=== PATIENT | female | born 1960 | race Two or more races ===

== ENCOUNTER 2017-01-31 13:35 | Outpatient (CLI) | payer BC | END 2017-01-31 23:59 | disposition home or self-care (01) | LOC: WOU 13:35 | PROVIDERS: ATTEND Podiatrist Foot & Ankle Surgery | DX: E11.622 Type 2 diabetes mellitus with other skin ulcer (principal); L97.321 Non-pressure chronic ulcer of left ankle limited to breakdown of skin; L03.116 Cellulitis of left lower limb; E11.610 Type 2 diabetes mellitus with diabetic neuropathic arthropathy; Z83.3 Family history of diabetes mellitus; Z82.49 Family history of ischemic heart disease and other diseases of the circulatory system; E11.42 Type 2 diabetes mellitus with diabetic polyneuropathy; I10 Essential (primary) hypertension; E78.5 Hyperlipidemia, unspecified; Z79.02 Long term (current) use of antithrombotics/antiplatelets; Z79.4 Long term (current) use of insulin; Z79.899 Other long term (current) drug therapy; Z86.73 Personal history of transient ischemic attack (TIA), and cerebral infarction without residual deficits | CPT/HCPCS: 11042; 87070; A6209; A6402 ==

== ENCOUNTER 2017-02-14 13:37 | Outpatient (CLI) | payer BC | END 2017-02-14 23:59 | disposition home or self-care (01) | LOC: WOU 13:37 | PROVIDERS: ATTEND Podiatrist Foot & Ankle Surgery | DX: E11.610 Type 2 diabetes mellitus with diabetic neuropathic arthropathy (principal); E11.42 Type 2 diabetes mellitus with diabetic polyneuropathy; R23.3 Spontaneous ecchymoses; E78.5 Hyperlipidemia, unspecified; I10 Essential (primary) hypertension; Z86.73 Personal history of transient ischemic attack (TIA), and cerebral infarction without residual deficits; L03.90 Cellulitis, unspecified | CPT/HCPCS: G0463 ==

== ENCOUNTER → 2017-02-15 | Outpatient (CLI) | payer BC | END | disposition home or self-care (01) | LOC: RAD 14:43 | PROVIDERS: ATTEND Podiatrist Foot & Ankle Surgery | DX: M77.31 Calcaneal spur, right foot (principal) | CPT/HCPCS: 73630-TC ==

== ENCOUNTER 2017-02-16 12:40 | Outpatient (CLI) | payer BC | END 2017-02-16 23:59 | disposition home or self-care (01) | LOC: WOU 12:40 | PROVIDERS: ATTEND Podiatrist Foot & Ankle Surgery | DX: E11.610 Type 2 diabetes mellitus with diabetic neuropathic arthropathy (principal); E11.42 Type 2 diabetes mellitus with diabetic polyneuropathy; B35.1 Tinea unguium; L03.031 Cellulitis of right toe; L03.115 Cellulitis of right lower limb; B35.3 Tinea pedis | CPT/HCPCS: G0463 ==

== ENCOUNTER 2017-03-07 13:35 | Outpatient (CLI) | payer BC | END 2017-03-07 23:59 | disposition home or self-care (01) | LOC: WOU 13:35 | PROVIDERS: ATTEND Podiatrist Foot & Ankle Surgery | DX: E11.610 Type 2 diabetes mellitus with diabetic neuropathic arthropathy (principal); E11.42 Type 2 diabetes mellitus with diabetic polyneuropathy | CPT/HCPCS: G0463 ==

== ENCOUNTER 2017-03-29 11:28 | Emergency (ER) | payer BC ==
[~2017-03-29] VITALS: Ht 170.2 cm; Wt 108.9 kg
[2017-03-29 11:45] VITALS: BP 122/60
[2017-03-29] MEDS ORDERED: CEFTRIAXONE 1 G VIAL IM ONE (13:00)
[2017-03-29] MEDS ORDERED: LIDOCAINE /MPF 1% VIAL 5 ML VIAL ONE (13:03)
[2017-03-29] MEDS ORDERED: CEFTRIAXONE 1 G VIAL ONE (13:03)
== END 2017-03-29 13:26 | disposition home or self-care (01) ==
LOC: ER 11:29
DX: L02.612 Cutaneous abscess of left foot (principal); I10 Essential (primary) hypertension; E78.00 Pure hypercholesterolemia, unspecified; E11.9 Type 2 diabetes mellitus without complications; E03.9 Hypothyroidism, unspecified; M10.9 Gout, unspecified
CPT/HCPCS: 10060; 96372; 99283; A4606; A6402; J0696; J3490; Z7610

== ENCOUNTER 2017-04-04 12:45 | Outpatient (CLI) | payer BC | END 2017-04-04 23:59 | disposition home or self-care (01) | LOC: WOU 12:45 | PROVIDERS: ATTEND Podiatrist Foot & Ankle Surgery | DX: E11.621 Type 2 diabetes mellitus with foot ulcer (principal); L97.421 Non-pressure chronic ulcer of left heel and midfoot limited to breakdown of skin; L03.116 Cellulitis of left lower limb; E11.610 Type 2 diabetes mellitus with diabetic neuropathic arthropathy; E11.42 Type 2 diabetes mellitus with diabetic polyneuropathy; Z86.73 Personal history of transient ischemic attack (TIA), and cerebral infarction without residual deficits; E78.5 Hyperlipidemia, unspecified; I10 Essential (primary) hypertension | CPT/HCPCS: 11042; A6402 ==

== ENCOUNTER 2017-04-11 12:50 | Outpatient (CLI) | payer BC | END 2017-04-11 23:59 | disposition home or self-care (01) | LOC: WOU 12:50 | PROVIDERS: ATTEND Podiatrist Foot & Ankle Surgery | DX: E11.621 Type 2 diabetes mellitus with foot ulcer (principal); L97.421 Non-pressure chronic ulcer of left heel and midfoot limited to breakdown of skin; E11.610 Type 2 diabetes mellitus with diabetic neuropathic arthropathy; E11.42 Type 2 diabetes mellitus with diabetic polyneuropathy; I10 Essential (primary) hypertension; Z86.73 Personal history of transient ischemic attack (TIA), and cerebral infarction without residual deficits | CPT/HCPCS: 11042; A6402 ==

== ENCOUNTER 2017-04-18 12:15 | Outpatient (CLI) | payer BC | END 2017-04-18 23:59 | disposition home or self-care (01) | LOC: WOU 12:15 | PROVIDERS: ATTEND Podiatrist Foot & Ankle Surgery | DX: E11.621 Type 2 diabetes mellitus with foot ulcer (principal); L97.421 Non-pressure chronic ulcer of left heel and midfoot limited to breakdown of skin; E11.610 Type 2 diabetes mellitus with diabetic neuropathic arthropathy; E11.40 Type 2 diabetes mellitus with diabetic neuropathy, unspecified; B35.1 Tinea unguium | CPT/HCPCS: 11042; A6402 ==

== ENCOUNTER 2017-04-25 12:55 | Outpatient (CLI) | payer BC | END 2017-04-25 23:59 | disposition home or self-care (01) | LOC: WOU 12:55 | PROVIDERS: ATTEND Podiatrist Foot & Ankle Surgery | DX: E11.621 Type 2 diabetes mellitus with foot ulcer (principal); L97.421 Non-pressure chronic ulcer of left heel and midfoot limited to breakdown of skin; E11.42 Type 2 diabetes mellitus with diabetic polyneuropathy; E11.610 Type 2 diabetes mellitus with diabetic neuropathic arthropathy | CPT/HCPCS: 11042; A6402 ==

== ENCOUNTER 2017-05-02 12:26 | Outpatient (CLI) | payer BC | END 2017-05-02 23:59 | disposition home or self-care (01) | LOC: WOU 12:26 | PROVIDERS: ATTEND Podiatrist Foot & Ankle Surgery | DX: E11.621 Type 2 diabetes mellitus with foot ulcer (principal); L97.421 Non-pressure chronic ulcer of left heel and midfoot limited to breakdown of skin; E11.610 Type 2 diabetes mellitus with diabetic neuropathic arthropathy; E11.42 Type 2 diabetes mellitus with diabetic polyneuropathy | CPT/HCPCS: 11042; A6402 ==

== ENCOUNTER 2017-05-09 12:44 | Outpatient (CLI) | payer BC | END 2017-05-09 23:59 | disposition home or self-care (01) | LOC: WOU 12:44 | PROVIDERS: ATTEND Podiatrist Foot & Ankle Surgery | DX: E11.621 Type 2 diabetes mellitus with foot ulcer (principal); L97.421 Non-pressure chronic ulcer of left heel and midfoot limited to breakdown of skin; E11.610 Type 2 diabetes mellitus with diabetic neuropathic arthropathy; E11.51 Type 2 diabetes mellitus with diabetic peripheral angiopathy without gangrene; M21.40 Flat foot [pes planus] (acquired), unspecified foot; E11.42 Type 2 diabetes mellitus with diabetic polyneuropathy; E78.5 Hyperlipidemia, unspecified; I10 Essential (primary) hypertension; Z86.73 Personal history of transient ischemic attack (TIA), and cerebral infarction without residual deficits | CPT/HCPCS: 11042; A6402 ==

== ENCOUNTER 2017-05-16 12:32 | Outpatient (CLI) | payer BC | END 2017-05-16 23:59 | disposition home or self-care (01) | LOC: WOU 12:32 | PROVIDERS: ATTEND Podiatrist Foot & Ankle Surgery | DX: E11.621 Type 2 diabetes mellitus with foot ulcer (principal); L97.421 Non-pressure chronic ulcer of left heel and midfoot limited to breakdown of skin; E11.610 Type 2 diabetes mellitus with diabetic neuropathic arthropathy; E11.42 Type 2 diabetes mellitus with diabetic polyneuropathy; I10 Essential (primary) hypertension; E78.5 Hyperlipidemia, unspecified; Z86.73 Personal history of transient ischemic attack (TIA), and cerebral infarction without residual deficits; B35.1 Tinea unguium | CPT/HCPCS: 11042; A6402 ×2 ==

== ENCOUNTER 2017-05-25 12:59 | Outpatient (CLI) | payer BC | END 2017-05-25 23:59 | disposition home or self-care (01) | LOC: WOU 12:59 | PROVIDERS: ATTEND Podiatrist Foot & Ankle Surgery | DX: E11.621 Type 2 diabetes mellitus with foot ulcer (principal); L97.423 Non-pressure chronic ulcer of left heel and midfoot with necrosis of muscle; E11.610 Type 2 diabetes mellitus with diabetic neuropathic arthropathy; E11.42 Type 2 diabetes mellitus with diabetic polyneuropathy; B35.1 Tinea unguium | CPT/HCPCS: 11043; A6197; A6402 ==

== ENCOUNTER 2017-06-01 13:26 | Outpatient (CLI) | payer BC | END 2017-06-01 23:59 | disposition home or self-care (01) | LOC: WOU 13:26 | PROVIDERS: ATTEND Podiatrist Foot & Ankle Surgery | DX: E11.621 Type 2 diabetes mellitus with foot ulcer (principal); L97.421 Non-pressure chronic ulcer of left heel and midfoot limited to breakdown of skin; E11.610 Type 2 diabetes mellitus with diabetic neuropathic arthropathy; E11.42 Type 2 diabetes mellitus with diabetic polyneuropathy | CPT/HCPCS: 11042; A6197; A6402 ==

== ENCOUNTER 2017-06-08 13:03 | Outpatient (CLI) | payer BC | END 2017-06-08 23:59 | disposition home or self-care (01) | LOC: WOU 13:03 | PROVIDERS: ATTEND Podiatrist Foot & Ankle Surgery | DX: E11.610 Type 2 diabetes mellitus with diabetic neuropathic arthropathy (principal); E11.42 Type 2 diabetes mellitus with diabetic polyneuropathy; L97.421 Non-pressure chronic ulcer of left heel and midfoot limited to breakdown of skin; S93.601A Unspecified sprain of right foot, initial encounter; W18.40XA Slipping, tripping and stumbling without falling, unspecified, initial encounter; Y92.89 Other specified places as the place of occurrence of the external cause; M19.031 Primary osteoarthritis, right wrist; R60.0 Localized edema | CPT/HCPCS: 29445; 73630; 99213; A6402; G0463 ==

== ENCOUNTER 2017-06-22 14:31 | Outpatient (CLI) | payer BC | END 2017-06-22 23:59 | disposition home or self-care (01) | LOC: WOU 14:31 | PROVIDERS: ATTEND Podiatrist Foot & Ankle Surgery | DX: E11.621 Type 2 diabetes mellitus with foot ulcer (principal); L97.421 Non-pressure chronic ulcer of left heel and midfoot limited to breakdown of skin; E11.610 Type 2 diabetes mellitus with diabetic neuropathic arthropathy; E11.42 Type 2 diabetes mellitus with diabetic polyneuropathy; B35.1 Tinea unguium | CPT/HCPCS: 29445; A6209 ==

== ENCOUNTER 2017-06-29 13:00 | Outpatient (CLI) | payer BC | END 2017-06-29 23:59 | disposition home or self-care (01) | LOC: WOU 13:00 | PROVIDERS: ATTEND Podiatrist Foot & Ankle Surgery | DX: E11.621 Type 2 diabetes mellitus with foot ulcer (principal); L97.421 Non-pressure chronic ulcer of left heel and midfoot limited to breakdown of skin; E11.610 Type 2 diabetes mellitus with diabetic neuropathic arthropathy; E11.42 Type 2 diabetes mellitus with diabetic polyneuropathy | CPT/HCPCS: 11042; A6209; A6402 ==

== ENCOUNTER 2017-07-06 13:15 | Outpatient (CLI) | payer BC | END 2017-07-06 23:59 | disposition home or self-care (01) | LOC: WOU 13:15 | PROVIDERS: ATTEND Podiatrist Foot & Ankle Surgery | DX: E11.621 Type 2 diabetes mellitus with foot ulcer (principal); L97.521 Non-pressure chronic ulcer of other part of left foot limited to breakdown of skin; E11.610 Type 2 diabetes mellitus with diabetic neuropathic arthropathy; E11.42 Type 2 diabetes mellitus with diabetic polyneuropathy; R60.0 Localized edema | CPT/HCPCS: A6402 ==

== ENCOUNTER 2017-07-18 10:55 | Outpatient (CLI) | payer BC | END 2017-07-18 23:59 | disposition home or self-care (01) | LOC: WOU 10:55 | PROVIDERS: ATTEND Podiatrist Foot & Ankle Surgery | DX: E11.610 Type 2 diabetes mellitus with diabetic neuropathic arthropathy (principal); E11.621 Type 2 diabetes mellitus with foot ulcer; L97.429 Non-pressure chronic ulcer of left heel and midfoot with unspecified severity; B35.1 Tinea unguium; L60.1 Onycholysis; R60.0 Localized edema | CPT/HCPCS: 11730; 29445; A6402 ==

== ENCOUNTER 2017-07-27 13:55 | Outpatient (CLI) | payer BC | END 2017-07-27 23:59 | disposition home or self-care (01) | LOC: WOU 13:55 | PROVIDERS: ATTEND Podiatrist Foot & Ankle Surgery | DX: E11.610 Type 2 diabetes mellitus with diabetic neuropathic arthropathy (principal); R60.0 Localized edema | CPT/HCPCS: G0463 ==

== ENCOUNTER 2017-08-10 12:50 | Outpatient (CLI) | payer BC | END 2017-08-10 23:59 | disposition home or self-care (01) | LOC: WOU 12:50 | PROVIDERS: ATTEND Podiatrist Foot & Ankle Surgery | DX: E11.610 Type 2 diabetes mellitus with diabetic neuropathic arthropathy (principal); R60.0 Localized edema ==

== ENCOUNTER 2017-08-13 14:06 | Outpatient (CLI) | payer BC | END 2017-08-13 23:59 | disposition home or self-care (01) | LOC: RAD 14:06 | PROVIDERS: ATTEND Podiatrist Foot & Ankle Surgery | DX: M77.31 Calcaneal spur, right foot (principal); I73.9 Peripheral vascular disease, unspecified; M77.32 Calcaneal spur, left foot | CPT/HCPCS: 73610-TC; 73630-TC ==

== ENCOUNTER 2017-08-17 13:05 | Outpatient (CLI) | payer BC | END 2017-08-17 23:59 | disposition home or self-care (01) | LOC: WOU 13:05 | PROVIDERS: ATTEND Podiatrist Foot & Ankle Surgery | DX: E11.610 Type 2 diabetes mellitus with diabetic neuropathic arthropathy (principal); E11.42 Type 2 diabetes mellitus with diabetic polyneuropathy; R60.0 Localized edema; M21.171 Varus deformity, not elsewhere classified, right ankle ==

== ENCOUNTER 2017-08-29 10:35 | Outpatient (CLI) | payer BC | END 2017-08-29 23:59 | disposition home or self-care (01) | LOC: WOU 10:35 | PROVIDERS: ATTEND Specialist | DX: E11.610 Type 2 diabetes mellitus with diabetic neuropathic arthropathy (principal); E11.42 Type 2 diabetes mellitus with diabetic polyneuropathy; E78.5 Hyperlipidemia, unspecified; I10 Essential (primary) hypertension; Z86.73 Personal history of transient ischemic attack (TIA), and cerebral infarction without residual deficits ==

== ENCOUNTER 2017-09-05 10:43 | Outpatient (CLI) | payer BC | END 2017-09-05 23:59 | disposition home or self-care (01) | LOC: WOU 10:43 | PROVIDERS: ATTEND Podiatrist Foot & Ankle Surgery | DX: S91.011D Laceration without foreign body, right ankle, subsequent encounter (principal); X58.XXXD Exposure to other specified factors, subsequent encounter; R60.0 Localized edema; M21.171 Varus deformity, not elsewhere classified, right ankle; E11.622 Type 2 diabetes mellitus with other skin ulcer; L97.311 Non-pressure chronic ulcer of right ankle limited to breakdown of skin; E11.42 Type 2 diabetes mellitus with diabetic polyneuropathy | CPT/HCPCS: A6402 ==

== ENCOUNTER 2017-09-21 11:00 | Outpatient (CLI) | payer BC | END 2017-09-21 23:59 | disposition home or self-care (01) | LOC: WOU 11:00 | PROVIDERS: ATTEND Podiatrist Foot & Ankle Surgery | DX: E11.622 Type 2 diabetes mellitus with other skin ulcer (principal); L97.312 Non-pressure chronic ulcer of right ankle with fat layer exposed; E11.42 Type 2 diabetes mellitus with diabetic polyneuropathy; L03.115 Cellulitis of right lower limb; E11.610 Type 2 diabetes mellitus with diabetic neuropathic arthropathy | CPT/HCPCS: 29445; A6209; A6402 ==

== ENCOUNTER 2017-09-28 08:21 | Outpatient (CLI) | payer BC | END 2017-09-29 23:59 | disposition home or self-care (01) | LOC: MRI 08:21 | PROVIDERS: ATTEND Podiatrist Foot & Ankle Surgery | DX: M89.8X7 Other specified disorders of bone, ankle and foot (principal); M14.671 Charcot's joint, right ankle and foot; M65.871 Other synovitis and tenosynovitis, right ankle and foot; M76.61 Achilles tendinitis, right leg; E11.9 Type 2 diabetes mellitus without complications | CPT/HCPCS: 73718-TC; 73721-TC ==

== ENCOUNTER 2017-10-05 12:50 | Outpatient (CLI) | payer BC | END 2017-10-05 23:59 | disposition home or self-care (01) | LOC: WOU 12:50 | PROVIDERS: ATTEND Podiatrist Foot & Ankle Surgery | DX: E11.622 Type 2 diabetes mellitus with other skin ulcer (principal); L97.312 Non-pressure chronic ulcer of right ankle with fat layer exposed; E11.610 Type 2 diabetes mellitus with diabetic neuropathic arthropathy; E11.42 Type 2 diabetes mellitus with diabetic polyneuropathy; M84.674A Pathological fracture in other disease, right foot, initial encounter for fracture | CPT/HCPCS: 11042; A6209; A6253; A6402 ==

== ENCOUNTER 2017-10-12 12:30 | Outpatient (CLI) | payer BC | END 2017-10-12 23:59 | disposition home or self-care (01) | LOC: WOU 12:30 | PROVIDERS: ATTEND Podiatrist Foot & Ankle Surgery | DX: E11.622 Type 2 diabetes mellitus with other skin ulcer (principal); L97.312 Non-pressure chronic ulcer of right ankle with fat layer exposed; E11.610 Type 2 diabetes mellitus with diabetic neuropathic arthropathy | CPT/HCPCS: 11042; A6209; A6402 ==

== ENCOUNTER 2017-10-24 11:03 | Outpatient (CLI) | payer BC | END 2017-10-24 23:59 | disposition home or self-care (01) | LOC: WOU 11:03 | PROVIDERS: ATTEND Podiatrist Foot & Ankle Surgery | DX: E11.622 Type 2 diabetes mellitus with other skin ulcer (principal); L97.312 Non-pressure chronic ulcer of right ankle with fat layer exposed; E11.610 Type 2 diabetes mellitus with diabetic neuropathic arthropathy; E11.42 Type 2 diabetes mellitus with diabetic polyneuropathy; R60.0 Localized edema | CPT/HCPCS: 11042; A6209; A6402 ==

== ENCOUNTER 2017-10-25 09:49 | Emergency (ER) | payer BC ==
[~2017-10-25] VITALS: Ht 167.6 cm; Wt 108.9 kg
--- NOTE | 2017-10-25 10:02 | NUR ---
PATIENT TO ED DT RIGHT FOOT PAIN, PT NOTED WITH RIGHT FOOT CAST PLACED BY MD JACK. PATIENT HAS HX OF CHARCOT FOOT. PT NOT IN DISTRESS. VSS
--- NOTE | 2017-10-25 10:03 | NUR ---
RAY AT BEDSIDE
--- NOTE | 2017-10-25 11:30 | NUR ---
CAST REMOVED PER MD ORDER
[2017-10-25 14:35] VITALS: BP 124/80
== END 2017-10-25 14:36 | disposition home or self-care (01) ==
LOC: ER 09:50
DX: Z47.89 Encounter for other orthopedic aftercare (principal); E03.9 Hypothyroidism, unspecified; E11.9 Type 2 diabetes mellitus without complications; I10 Essential (primary) hypertension; M10.9 Gout, unspecified; Z79.4 Long term (current) use of insulin
CPT/HCPCS: 99281; A4606; A6403; Z7610; Z7502

== ENCOUNTER → 2017-10-26 | Outpatient (CLI) | payer BC | END | disposition home or self-care (01) | LOC: WOU 08:14 | PROVIDERS: ATTEND Podiatrist Foot & Ankle Surgery | DX: E11.622 Type 2 diabetes mellitus with other skin ulcer (principal); L97.312 Non-pressure chronic ulcer of right ankle with fat layer exposed; E11.42 Type 2 diabetes mellitus with diabetic polyneuropathy; E11.610 Type 2 diabetes mellitus with diabetic neuropathic arthropathy | CPT/HCPCS: 11042; A6209; A6402 ==

== ENCOUNTER 2017-11-02 11:00 | Outpatient (CLI) | payer BC | END 2017-11-02 23:59 | disposition home or self-care (01) | LOC: WOU 11:00 | PROVIDERS: ATTEND Podiatrist Foot & Ankle Surgery | DX: E11.622 Type 2 diabetes mellitus with other skin ulcer (principal); E11.610 Type 2 diabetes mellitus with diabetic neuropathic arthropathy; E11.42 Type 2 diabetes mellitus with diabetic polyneuropathy; L97.312 Non-pressure chronic ulcer of right ankle with fat layer exposed; R60.0 Localized edema | CPT/HCPCS: 11042; A6209; A6402 ==

== ENCOUNTER 2017-11-09 13:25 | Outpatient (CLI) | payer BC | END 2017-11-09 23:59 | disposition home or self-care (01) | LOC: WOU 13:25 | PROVIDERS: ATTEND Podiatrist Foot & Ankle Surgery | DX: E11.610 Type 2 diabetes mellitus with diabetic neuropathic arthropathy (principal); E11.42 Type 2 diabetes mellitus with diabetic polyneuropathy; R60.0 Localized edema | CPT/HCPCS: A6209; G0463 ==

== ENCOUNTER 2017-12-05 09:08 | Outpatient (CLI) | payer BC | END 2017-12-05 23:59 | disposition home or self-care (01) | LOC: WOU 09:08 | PROVIDERS: ATTEND Podiatrist Foot & Ankle Surgery | DX: E11.622 Type 2 diabetes mellitus with other skin ulcer (principal); L97.312 Non-pressure chronic ulcer of right ankle with fat layer exposed; E11.42 Type 2 diabetes mellitus with diabetic polyneuropathy; E11.610 Type 2 diabetes mellitus with diabetic neuropathic arthropathy; M21.171 Varus deformity, not elsewhere classified, right ankle; M84.671 Pathological fracture in other disease, right ankle | CPT/HCPCS: 11042; A6209; A6402 ==

== ENCOUNTER 2017-12-14 13:39 | Outpatient (CLI) | payer BC | END 2017-12-14 23:59 | disposition home or self-care (01) | LOC: WOU 13:39 | PROVIDERS: ATTEND Podiatrist Foot & Ankle Surgery | DX: E11.622 Type 2 diabetes mellitus with other skin ulcer (principal); L97.312 Non-pressure chronic ulcer of right ankle with fat layer exposed; E11.610 Type 2 diabetes mellitus with diabetic neuropathic arthropathy; M21.171 Varus deformity, not elsewhere classified, right ankle; E11.40 Type 2 diabetes mellitus with diabetic neuropathy, unspecified | CPT/HCPCS: 11042; A6402 ==

== ENCOUNTER 2017-12-25 08:00 | Outpatient (CLI) | payer BC | END 2017-12-25 23:59 | disposition home or self-care (01) | LOC: WOU 08:00 | PROVIDERS: ATTEND Podiatrist Foot & Ankle Surgery | DX: E11.622 Type 2 diabetes mellitus with other skin ulcer (principal); L97.312 Non-pressure chronic ulcer of right ankle with fat layer exposed; E11.42 Type 2 diabetes mellitus with diabetic polyneuropathy; E11.610 Type 2 diabetes mellitus with diabetic neuropathic arthropathy; M25.374 Other instability, right foot; R60.0 Localized edema | CPT/HCPCS: 11042; A6402 ==

== ENCOUNTER 2018-01-01 08:00 | Outpatient (CLI) | payer BC | END 2018-01-01 23:59 | disposition home or self-care (01) | LOC: WOU 08:00 | PROVIDERS: ATTEND Podiatrist Foot & Ankle Surgery | DX: E11.622 Type 2 diabetes mellitus with other skin ulcer (principal); L97.312 Non-pressure chronic ulcer of right ankle with fat layer exposed; E11.610 Type 2 diabetes mellitus with diabetic neuropathic arthropathy; E11.40 Type 2 diabetes mellitus with diabetic neuropathy, unspecified; R60.9 Edema, unspecified; M21.10 Varus deformity, not elsewhere classified, unspecified site | CPT/HCPCS: 11042; A6402 ==

== ENCOUNTER 2018-01-15 08:00 | Outpatient (CLI) | payer BC | END 2018-01-15 23:59 | disposition home or self-care (01) | LOC: WOU 08:00 | PROVIDERS: ATTEND Podiatrist Foot & Ankle Surgery | DX: E11.622 Type 2 diabetes mellitus with other skin ulcer (principal); L97.312 Non-pressure chronic ulcer of right ankle with fat layer exposed; E11.42 Type 2 diabetes mellitus with diabetic polyneuropathy; E11.610 Type 2 diabetes mellitus with diabetic neuropathic arthropathy; Z79.4 Long term (current) use of insulin; Z79.02 Long term (current) use of antithrombotics/antiplatelets; R60.0 Localized edema | CPT/HCPCS: 11042; A6402 ==

== ENCOUNTER 2018-01-16 09:45 | Outpatient (CLI) | payer BC ==
[2018-01-16] MEDS ORDERED: FLUORESCEIN SODIUM OPHTH 1 EA STRIP ONE (14:22)
[2018-01-16] MEDS ORDERED: TETRACAINE HCL/PF 0.5% UD 2 ML BOTTLE ONE (14:22)
== END 2018-01-16 23:59 | disposition home or self-care (01) ==
LOC: WOU 09:45
PROVIDERS: ATTEND Podiatrist Foot & Ankle Surgery
DX: E11.610 Type 2 diabetes mellitus with diabetic neuropathic arthropathy (principal); M25.371 Other instability, right ankle; M25.571 Pain in right ankle and joints of right foot; Z79.4 Long term (current) use of insulin
CPT/HCPCS: A6402

== ENCOUNTER 2018-01-22 08:20 | Outpatient (CLI) | payer BC | END 2018-01-22 23:59 | disposition home or self-care (01) | LOC: WOU 08:20 | PROVIDERS: ATTEND Podiatrist Foot & Ankle Surgery | DX: E11.621 Type 2 diabetes mellitus with foot ulcer (principal); L97.312 Non-pressure chronic ulcer of right ankle with fat layer exposed; E11.42 Type 2 diabetes mellitus with diabetic polyneuropathy; E11.610 Type 2 diabetes mellitus with diabetic neuropathic arthropathy; Z79.4 Long term (current) use of insulin; R60.9 Edema, unspecified | CPT/HCPCS: 11042; A6402; 11045 ==

== ENCOUNTER 2018-01-29 08:23 | Outpatient (CLI) | payer BC | END 2018-01-29 23:59 | disposition home or self-care (01) | LOC: WOU 08:23 | PROVIDERS: ATTEND Podiatrist Foot & Ankle Surgery | DX: E11.621 Type 2 diabetes mellitus with foot ulcer (principal); L97.312 Non-pressure chronic ulcer of right ankle with fat layer exposed; E11.42 Type 2 diabetes mellitus with diabetic polyneuropathy; E11.610 Type 2 diabetes mellitus with diabetic neuropathic arthropathy; Z79.4 Long term (current) use of insulin; M21.179 Varus deformity, not elsewhere classified, unspecified ankle; R60.9 Edema, unspecified | CPT/HCPCS: 11042; A6402 ==

== ENCOUNTER 2018-02-05 08:07 | Outpatient (CLI) | payer BC | END 2018-02-05 23:59 | disposition home or self-care (01) | LOC: WOU 08:07 | PROVIDERS: ATTEND Podiatrist Foot & Ankle Surgery | DX: E11.622 Type 2 diabetes mellitus with other skin ulcer (principal); L97.312 Non-pressure chronic ulcer of right ankle with fat layer exposed; S90.32XA Contusion of left foot, initial encounter; X58.XXXA Exposure to other specified factors, initial encounter; Y92.89 Other specified places as the place of occurrence of the external cause; E11.610 Type 2 diabetes mellitus with diabetic neuropathic arthropathy; Z79.4 Long term (current) use of insulin; M21.171 Varus deformity, not elsewhere classified, right ankle; R60.9 Edema, unspecified | CPT/HCPCS: 11042; A6402 ==

== ENCOUNTER 2018-02-19 08:50 | Outpatient (CLI) | payer BC | END 2018-02-19 23:59 | disposition home or self-care (01) | LOC: WOU 08:50 | PROVIDERS: ATTEND Podiatrist Foot & Ankle Surgery | DX: E11.622 Type 2 diabetes mellitus with other skin ulcer (principal); L97.312 Non-pressure chronic ulcer of right ankle with fat layer exposed; E11.610 Type 2 diabetes mellitus with diabetic neuropathic arthropathy; E11.42 Type 2 diabetes mellitus with diabetic polyneuropathy; E11.65 Type 2 diabetes mellitus with hyperglycemia; Z79.4 Long term (current) use of insulin | CPT/HCPCS: 11042; A6402 ==

== ENCOUNTER 2018-03-11 14:44 | Outpatient (CLI) | payer BC | END 2018-03-11 23:59 | disposition home or self-care (01) | LOC: RAD 14:44 | PROVIDERS: ATTEND Podiatrist Foot & Ankle Surgery | DX: S82.891A Other fracture of right lower leg, initial encounter for closed fracture (principal); X58.XXXA Exposure to other specified factors, initial encounter; Y93.89 Activity, other specified; Y92.89 Other specified places as the place of occurrence of the external cause; Y99.8 Other external cause status | CPT/HCPCS: 73600-TC; 73630-TC ==

== ENCOUNTER 2018-03-12 08:07 | Outpatient (CLI) | payer BC | END 2018-03-12 23:59 | disposition home or self-care (01) | LOC: WOU 08:07 | PROVIDERS: ATTEND Podiatrist Foot & Ankle Surgery | DX: E11.622 Type 2 diabetes mellitus with other skin ulcer (principal); L97.312 Non-pressure chronic ulcer of right ankle with fat layer exposed; E11.610 Type 2 diabetes mellitus with diabetic neuropathic arthropathy; Z79.4 Long term (current) use of insulin; R60.0 Localized edema; E11.42 Type 2 diabetes mellitus with diabetic polyneuropathy | CPT/HCPCS: 11042; A6209; A6402 ==

== ENCOUNTER 2018-03-15 11:27 | Outpatient (CLI) | payer BC | END 2018-03-15 23:59 | disposition home or self-care (01) | LOC: WOU 11:27 | PROVIDERS: ATTEND Podiatrist Foot & Ankle Surgery | DX: E11.622 Type 2 diabetes mellitus with other skin ulcer (principal); L97.312 Non-pressure chronic ulcer of right ankle with fat layer exposed; E11.610 Type 2 diabetes mellitus with diabetic neuropathic arthropathy; E11.42 Type 2 diabetes mellitus with diabetic polyneuropathy; R60.0 Localized edema; M25.371 Other instability, right ankle; Z79.4 Long term (current) use of insulin; Z79.899 Other long term (current) drug therapy; Z79.02 Long term (current) use of antithrombotics/antiplatelets | CPT/HCPCS: G0463 ==

== ENCOUNTER 2018-04-02 07:50 | Outpatient (CLI) | payer BC | END 2018-04-02 23:59 | disposition home or self-care (01) | LOC: WOU 07:50 | PROVIDERS: ATTEND Podiatrist Foot & Ankle Surgery | DX: E11.622 Type 2 diabetes mellitus with other skin ulcer (principal); L97.312 Non-pressure chronic ulcer of right ankle with fat layer exposed; E11.42 Type 2 diabetes mellitus with diabetic polyneuropathy; R60.0 Localized edema; E11.610 Type 2 diabetes mellitus with diabetic neuropathic arthropathy; Z79.4 Long term (current) use of insulin; Z79.02 Long term (current) use of antithrombotics/antiplatelets | CPT/HCPCS: 11042; A6209; A6402; Z7610 ==

== ENCOUNTER 2018-04-03 08:33 | Outpatient (CLI) | payer BC | END 2018-04-03 23:59 | disposition home or self-care (01) | LOC: WOU 08:33 | PROVIDERS: ATTEND Specialist | DX: M25.571 Pain in right ankle and joints of right foot (principal); E11.610 Type 2 diabetes mellitus with diabetic neuropathic arthropathy; E11.628 Type 2 diabetes mellitus with other skin complications; E78.5 Hyperlipidemia, unspecified; E11.42 Type 2 diabetes mellitus with diabetic polyneuropathy; Z86.73 Personal history of transient ischemic attack (TIA), and cerebral infarction without residual deficits; I10 Essential (primary) hypertension; Z79.4 Long term (current) use of insulin; Z79.02 Long term (current) use of antithrombotics/antiplatelets; Z79.899 Other long term (current) drug therapy | CPT/HCPCS: G0463; Z7610 ==

== ENCOUNTER 2018-04-17 13:30 | Outpatient (CLI) | payer BC | END 2018-04-17 23:59 | disposition home or self-care (01) | LOC: WOU 13:30 | PROVIDERS: ATTEND Podiatrist Foot & Ankle Surgery | DX: E11.622 Type 2 diabetes mellitus with other skin ulcer (principal); L97.312 Non-pressure chronic ulcer of right ankle with fat layer exposed; E11.610 Type 2 diabetes mellitus with diabetic neuropathic arthropathy; E11.42 Type 2 diabetes mellitus with diabetic polyneuropathy; M21.171 Varus deformity, not elsewhere classified, right ankle; Z79.02 Long term (current) use of antithrombotics/antiplatelets; Z79.4 Long term (current) use of insulin | CPT/HCPCS: 11042; A6402; Z7610 ==

== ENCOUNTER 2018-05-14 07:55 | Outpatient (CLI) | payer BC | END 2018-05-14 23:59 | disposition home or self-care (01) | LOC: WOU 07:55 | PROVIDERS: ATTEND Podiatrist Foot & Ankle Surgery | DX: E11.622 Type 2 diabetes mellitus with other skin ulcer (principal); L97.318 Non-pressure chronic ulcer of right ankle with other specified severity; E11.610 Type 2 diabetes mellitus with diabetic neuropathic arthropathy; E11.42 Type 2 diabetes mellitus with diabetic polyneuropathy; E11.628 Type 2 diabetes mellitus with other skin complications; Z79.4 Long term (current) use of insulin; Z79.02 Long term (current) use of antithrombotics/antiplatelets | CPT/HCPCS: 11042; A6402; Z7610 ==

== ENCOUNTER 2018-06-11 08:00 | Outpatient (CLI) | payer BC | END 2018-06-11 23:59 | disposition home or self-care (01) | LOC: WOU 08:00 | PROVIDERS: ATTEND Podiatrist Foot & Ankle Surgery | DX: E11.610 Type 2 diabetes mellitus with diabetic neuropathic arthropathy (principal); E11.42 Type 2 diabetes mellitus with diabetic polyneuropathy; M21.171 Varus deformity, not elsewhere classified, right ankle; Z79.4 Long term (current) use of insulin; Z79.02 Long term (current) use of antithrombotics/antiplatelets; Z86.31 Personal history of diabetic foot ulcer | CPT/HCPCS: 29445; A6402; Z7610 ==

== ENCOUNTER 2018-06-13 10:06 | Outpatient (CLI) | payer BC | END 2018-06-13 23:59 | disposition home or self-care (01) | LOC: CT 10:06 | PROVIDERS: ATTEND Podiatrist Foot & Ankle Surgery | DX: M21.961 Unspecified acquired deformity of right lower leg (principal); R60.0 Localized edema; Z87.39 Personal history of other diseases of the musculoskeletal system and connective tissue; E03.9 Hypothyroidism, unspecified; I10 Essential (primary) hypertension; E11.9 Type 2 diabetes mellitus without complications | CPT/HCPCS: 73700-TC ==

== ENCOUNTER 2018-07-05 08:44 | Outpatient (CLI) | payer BC | END 2018-07-05 23:59 | disposition home or self-care (01) | LOC: WOU 08:44 | PROVIDERS: ATTEND Podiatrist Foot & Ankle Surgery | DX: Z47.89 Encounter for other orthopedic aftercare (principal); E11.610 Type 2 diabetes mellitus with diabetic neuropathic arthropathy; E11.42 Type 2 diabetes mellitus with diabetic polyneuropathy; Z86.31 Personal history of diabetic foot ulcer; M21.171 Varus deformity, not elsewhere classified, right ankle; T85.79XA Infection and inflammatory reaction due to other internal prosthetic devices, implants and grafts, initial encounter; Y79.3 Surgical instruments, materials and orthopedic devices (including sutures) associated with adverse incidents; Y92.89 Other specified places as the place of occurrence of the external cause | CPT/HCPCS: 99214; A6402; Z7610; G0463 ==

== ENCOUNTER 2018-07-26 10:27 | Outpatient (CLI) | payer BC | END 2018-07-26 23:59 | LOC: WOU 10:27 | PROVIDERS: ATTEND Podiatrist Foot & Ankle Surgery | DX: Z47.89 Encounter for other orthopedic aftercare (principal); E11.610 Type 2 diabetes mellitus with diabetic neuropathic arthropathy; R60.0 Localized edema; Z79.4 Long term (current) use of insulin | CPT/HCPCS: A6402; G0463; Z7610 ==

== ENCOUNTER 2018-10-09 13:55 | Outpatient (CLI) | payer BC | END 2018-10-09 23:59 | disposition home health service (06) | LOC: WOU 13:55 | PROVIDERS: ATTEND Podiatrist Foot & Ankle Surgery | DX: Z47.89 Encounter for other orthopedic aftercare (principal); E11.610 Type 2 diabetes mellitus with diabetic neuropathic arthropathy; E11.42 Type 2 diabetes mellitus with diabetic polyneuropathy; R60.0 Localized edema; L97.813 Non-pressure chronic ulcer of other part of right lower leg with necrosis of muscle; Z79.82 Long term (current) use of aspirin; Z79.4 Long term (current) use of insulin | CPT/HCPCS: 11043; A6402 ==

== ENCOUNTER 2018-10-29 11:00 | Outpatient (CLI) | payer BC | END 2018-10-29 23:59 | disposition home or self-care (01) | LOC: CT 11:00 | PROVIDERS: ATTEND Podiatrist Foot & Ankle Surgery | DX: M21.961 Unspecified acquired deformity of right lower leg (principal); R60.0 Localized edema; E03.9 Hypothyroidism, unspecified; I10 Essential (primary) hypertension; E11.9 Type 2 diabetes mellitus without complications; Z87.39 Personal history of other diseases of the musculoskeletal system and connective tissue | CPT/HCPCS: 73700-TC ==

== ENCOUNTER 2018-10-29 11:30 | Outpatient (CLI) | payer BC | END 2018-10-29 23:59 | disposition home health service (06) | LOC: WOU 11:30 | PROVIDERS: ATTEND Podiatrist Foot & Ankle Surgery | DX: Z47.89 Encounter for other orthopedic aftercare (principal); Z98.1 Arthrodesis status; L97.315 Non-pressure chronic ulcer of right ankle with muscle involvement without evidence of necrosis; E11.610 Type 2 diabetes mellitus with diabetic neuropathic arthropathy; E11.42 Type 2 diabetes mellitus with diabetic polyneuropathy; Z79.4 Long term (current) use of insulin | CPT/HCPCS: 11042 ==

== ENCOUNTER 2018-11-05 13:38 | Outpatient (CLI) | payer BC | END 2018-11-05 23:59 | disposition home health service (06) | LOC: WOU 13:38 | PROVIDERS: ATTEND Podiatrist Foot & Ankle Surgery | DX: Z47.89 Encounter for other orthopedic aftercare (principal); E11.622 Type 2 diabetes mellitus with other skin ulcer; L97.315 Non-pressure chronic ulcer of right ankle with muscle involvement without evidence of necrosis; E11.610 Type 2 diabetes mellitus with diabetic neuropathic arthropathy; E11.42 Type 2 diabetes mellitus with diabetic polyneuropathy; Z79.4 Long term (current) use of insulin; R60.0 Localized edema; Z98.1 Arthrodesis status | CPT/HCPCS: 11042; Z7610 ==

== ENCOUNTER 2018-11-13 13:05 | Outpatient (CLI) | payer BC | END 2018-11-13 23:59 | disposition home health service (06) | LOC: WOU 13:05 | PROVIDERS: ATTEND Podiatrist Foot & Ankle Surgery | DX: E11.622 Type 2 diabetes mellitus with other skin ulcer (principal); L97.315 Non-pressure chronic ulcer of right ankle with muscle involvement without evidence of necrosis; E11.610 Type 2 diabetes mellitus with diabetic neuropathic arthropathy; E11.42 Type 2 diabetes mellitus with diabetic polyneuropathy; M24.671 Ankylosis, right ankle; Z98.1 Arthrodesis status | CPT/HCPCS: 11042; A6402 ==

== ENCOUNTER 2018-11-27 10:51 | Outpatient (CLI) | payer BC | END 2018-11-27 23:59 | disposition home or self-care (01) | LOC: CT 10:51 | PROVIDERS: ATTEND Podiatrist Foot & Ankle Surgery | DX: M21.961 Unspecified acquired deformity of right lower leg (principal); L98.498 Non-pressure chronic ulcer of skin of other sites with other specified severity; R60.0 Localized edema; E03.9 Hypothyroidism, unspecified; I10 Essential (primary) hypertension; E11.9 Type 2 diabetes mellitus without complications; Z87.39 Personal history of other diseases of the musculoskeletal system and connective tissue; Z98.890 Other specified postprocedural states | CPT/HCPCS: 73700-TC ==

== ENCOUNTER 2018-11-27 12:45 | Outpatient (CLI) | payer BC | END 2018-11-27 23:59 | disposition home health service (06) | LOC: WOU 12:45 | PROVIDERS: ATTEND Podiatrist Foot & Ankle Surgery | DX: Z47.89 Encounter for other orthopedic aftercare (principal); Z98.1 Arthrodesis status; E11.42 Type 2 diabetes mellitus with diabetic polyneuropathy; E11.610 Type 2 diabetes mellitus with diabetic neuropathic arthropathy; Z79.4 Long term (current) use of insulin; Z79.02 Long term (current) use of antithrombotics/antiplatelets; E11.622 Type 2 diabetes mellitus with other skin ulcer; L97.315 Non-pressure chronic ulcer of right ankle with muscle involvement without evidence of necrosis | CPT/HCPCS: 11042; A6402 ==

== ENCOUNTER 2018-12-17 05:25 | Day surgery (SDC) | payer BC ==
[2018-12-17] MEDS ORDERED: ANESTHESIA TRAY IN PYXIS 1 EA TRAY MC ONE (06:55)
[2018-12-17] MEDS ORDERED: LIDOCAINE HCL/PF 1% 30 ML SDV ONE (06:57)
[2018-12-17] MEDS ORDERED: BUPIVACAINE MPF 0.5% W/EPI INJ 30 ML VIAL ONE (06:57)
[2018-12-17] MEDS ORDERED: FENTANYL PF 250MCG/5ML AMPUL ONE (07:12)
[2018-12-17] MEDS ORDERED: MIDAZOLAM HCL 2 MG/2ML VIAL ONE (07:12)
[2018-12-17] MEDS ORDERED: METOCLOPRAMIDE HCL 10 MG/2 ML VIAL ONE (07:12)
[2018-12-17] MEDS ORDERED: FAMOTIDINE/PF INJ 20 MG/2 ML VIAL IV ONE (07:13)
[2018-12-17] MEDS ORDERED: FENTANYL PF 100MCG/2ML AMPUL ONE (08:48)
== END 2018-12-17 09:55 | disposition home or self-care (01) ==
LOC: DS 05:25
PROVIDERS: ATTEND Podiatrist Foot & Ankle Surgery
DX: E11.621 Type 2 diabetes mellitus with foot ulcer (principal); L97.518 Non-pressure chronic ulcer of other part of right foot with other specified severity; E11.22 Type 2 diabetes mellitus with diabetic chronic kidney disease; I12.9 Hypertensive chronic kidney disease with stage 1 through stage 4 chronic kidney disease, or unspecified chronic kidney disease; N18.3 Chronic kidney disease, stage 3 (moderate); E03.9 Hypothyroidism, unspecified; E11.42 Type 2 diabetes mellitus with diabetic polyneuropathy; E78.5 Hyperlipidemia, unspecified; Z86.73 Personal history of transient ischemic attack (TIA), and cerebral infarction without residual deficits; Z98.890 Other specified postprocedural states; E78.00 Pure hypercholesterolemia, unspecified; Z79.899 Other long term (current) drug therapy
CPT/HCPCS: 20694; 73620; 82962 ×2; A6402; J0690; J2250; J2405; J2704; J2765; J3010 ×2; J3490 ×2

== ENCOUNTER 2018-12-20 10:50 | Outpatient (CLI) | payer BC | END 2018-12-20 23:59 | LOC: WOU 10:50 | PROVIDERS: ATTEND Podiatrist Foot & Ankle Surgery | DX: E11.622 Type 2 diabetes mellitus with other skin ulcer (principal); L97.815 Non-pressure chronic ulcer of other part of right lower leg with muscle involvement without evidence of necrosis; E11.42 Type 2 diabetes mellitus with diabetic polyneuropathy; E11.610 Type 2 diabetes mellitus with diabetic neuropathic arthropathy; M24.671 Ankylosis, right ankle; Z79.4 Long term (current) use of insulin; Z79.02 Long term (current) use of antithrombotics/antiplatelets | CPT/HCPCS: 11042 ==

== ENCOUNTER 2018-12-25 11:39 | Outpatient (CLI) | payer BC | END 2018-12-25 23:59 | disposition home or self-care (01) | LOC: RAD 11:39 | PROVIDERS: ATTEND Podiatrist Foot & Ankle Surgery | DX: M24.671 Ankylosis, right ankle (principal); Z98.890 Other specified postprocedural states | CPT/HCPCS: 73600-TC ==

== ENCOUNTER 2018-12-27 10:54 | Outpatient (CLI) | payer BC | END 2018-12-27 23:59 | disposition home health service (06) | LOC: WOU 10:54 | PROVIDERS: ATTEND Podiatrist Foot & Ankle Surgery | DX: E11.622 Type 2 diabetes mellitus with other skin ulcer (principal); L97.815 Non-pressure chronic ulcer of other part of right lower leg with muscle involvement without evidence of necrosis; E11.42 Type 2 diabetes mellitus with diabetic polyneuropathy; E11.610 Type 2 diabetes mellitus with diabetic neuropathic arthropathy; Z79.4 Long term (current) use of insulin; Z79.02 Long term (current) use of antithrombotics/antiplatelets; Z98.1 Arthrodesis status | CPT/HCPCS: 11042; A6402 ==

== ENCOUNTER 2019-01-03 11:04 | Outpatient (CLI) | payer BC | END 2019-01-03 23:59 | disposition home health service (06) | LOC: WOU 11:04 | PROVIDERS: ATTEND Podiatrist Foot & Ankle Surgery | DX: Z47.89 Encounter for other orthopedic aftercare (principal); E11.622 Type 2 diabetes mellitus with other skin ulcer; L97.312 Non-pressure chronic ulcer of right ankle with fat layer exposed; E11.42 Type 2 diabetes mellitus with diabetic polyneuropathy; E11.610 Type 2 diabetes mellitus with diabetic neuropathic arthropathy; R60.0 Localized edema; Z98.1 Arthrodesis status; Z79.4 Long term (current) use of insulin; Z79.82 Long term (current) use of aspirin | CPT/HCPCS: 11042; A6402 ==

== ENCOUNTER 2019-01-10 10:55 | Outpatient (CLI) | payer BC | END 2019-01-10 23:59 | disposition home health service (06) | LOC: WOU 10:55 | PROVIDERS: ATTEND Podiatrist Foot & Ankle Surgery | DX: E11.622 Type 2 diabetes mellitus with other skin ulcer (principal); L97.312 Non-pressure chronic ulcer of right ankle with fat layer exposed; E11.610 Type 2 diabetes mellitus with diabetic neuropathic arthropathy; E11.42 Type 2 diabetes mellitus with diabetic polyneuropathy; R60.0 Localized edema; T81.89XA Other complications of procedures, not elsewhere classified, initial encounter; Z98.1 Arthrodesis status | CPT/HCPCS: 11042; A6402 ==

== ENCOUNTER 2019-01-17 10:55 | Outpatient (CLI) | payer BC | END 2019-01-17 23:59 | disposition home health service (06) | LOC: WOU 10:55 | PROVIDERS: ATTEND Podiatrist Foot & Ankle Surgery | DX: Z47.89 Encounter for other orthopedic aftercare (principal); E11.622 Type 2 diabetes mellitus with other skin ulcer; L97.312 Non-pressure chronic ulcer of right ankle with fat layer exposed; E11.610 Type 2 diabetes mellitus with diabetic neuropathic arthropathy; Z98.1 Arthrodesis status; R60.0 Localized edema; Z79.4 Long term (current) use of insulin; Z79.02 Long term (current) use of antithrombotics/antiplatelets; Z79.899 Other long term (current) drug therapy | CPT/HCPCS: 11042; A6402 ==

== ENCOUNTER 2019-01-31 10:30 | Outpatient (CLI) | payer BC | END 2019-01-31 23:59 | disposition home health service (06) | LOC: WOU 10:30 | PROVIDERS: ATTEND Podiatrist Foot & Ankle Surgery | DX: Z47.89 Encounter for other orthopedic aftercare (principal); E11.622 Type 2 diabetes mellitus with other skin ulcer; E11.42 Type 2 diabetes mellitus with diabetic polyneuropathy; Z98.1 Arthrodesis status; E11.610 Type 2 diabetes mellitus with diabetic neuropathic arthropathy; L97.312 Non-pressure chronic ulcer of right ankle with fat layer exposed; E78.5 Hyperlipidemia, unspecified; Z86.73 Personal history of transient ischemic attack (TIA), and cerebral infarction without residual deficits; Z79.4 Long term (current) use of insulin; Z79.82 Long term (current) use of aspirin; Z79.899 Other long term (current) drug therapy | CPT/HCPCS: 11042 ==

== ENCOUNTER 2019-02-07 10:50 | Outpatient (CLI) | payer BC | END 2019-02-07 23:59 | disposition home or self-care (01) | LOC: WOU 10:50 | PROVIDERS: ATTEND Podiatrist Foot & Ankle Surgery | DX: Z47.89 Encounter for other orthopedic aftercare (principal); Z98.1 Arthrodesis status; E11.42 Type 2 diabetes mellitus with diabetic polyneuropathy; E11.610 Type 2 diabetes mellitus with diabetic neuropathic arthropathy; R60.0 Localized edema; Z79.4 Long term (current) use of insulin; Z79.82 Long term (current) use of aspirin | CPT/HCPCS: G0463 ==

== ENCOUNTER 2019-03-14 10:50 | Outpatient (CLI) | payer BC | END 2019-03-14 23:59 | disposition home or self-care (01) | LOC: WOU 10:50 | PROVIDERS: ATTEND Podiatrist Foot & Ankle Surgery | DX: E11.610 Type 2 diabetes mellitus with diabetic neuropathic arthropathy (principal); E11.42 Type 2 diabetes mellitus with diabetic polyneuropathy; R60.0 Localized edema; Z98.1 Arthrodesis status; Z79.4 Long term (current) use of insulin | CPT/HCPCS: G0463 ==

== ENCOUNTER 2019-04-09 13:48 | Outpatient (CLI) | payer BC | END 2019-04-09 23:59 | disposition home or self-care (01) | LOC: WOU 13:48 | PROVIDERS: ATTEND Podiatrist Foot & Ankle Surgery | DX: E11.621 Type 2 diabetes mellitus with foot ulcer (principal); L97.422 Non-pressure chronic ulcer of left heel and midfoot with fat layer exposed; E11.42 Type 2 diabetes mellitus with diabetic polyneuropathy; E11.610 Type 2 diabetes mellitus with diabetic neuropathic arthropathy; Z98.1 Arthrodesis status | CPT/HCPCS: 11042; A6402 ==

== ENCOUNTER 2019-05-21 12:04 | Outpatient (CLI) | payer BC | END 2019-05-21 23:59 | disposition home or self-care (01) | LOC: RAD 12:04 | PROVIDERS: ATTEND Podiatrist Foot & Ankle Surgery | DX: S92.331D Displaced fracture of third metatarsal bone, right foot, subsequent encounter for fracture with routine healing (principal); S82.491K Other fracture of shaft of right fibula, subsequent encounter for closed fracture with nonunion; I10 Essential (primary) hypertension; E11.9 Type 2 diabetes mellitus without complications; X58.XXXD Exposure to other specified factors, subsequent encounter | CPT/HCPCS: 73610-TC; 73630-TC ==

== ENCOUNTER 2019-05-28 11:45 | Outpatient (CLI) | payer BC | END 2019-05-28 23:59 | disposition home or self-care (01) | LOC: WOU 11:45 | PROVIDERS: ATTEND Podiatrist Foot & Ankle Surgery | DX: E11.621 Type 2 diabetes mellitus with foot ulcer (principal); L97.822 Non-pressure chronic ulcer of other part of left lower leg with fat layer exposed; E11.610 Type 2 diabetes mellitus with diabetic neuropathic arthropathy; M96.0 Pseudarthrosis after fusion or arthrodesis; E11.42 Type 2 diabetes mellitus with diabetic polyneuropathy; R60.0 Localized edema; Z87.891 Personal history of nicotine dependence; E78.5 Hyperlipidemia, unspecified; I10 Essential (primary) hypertension; Z79.4 Long term (current) use of insulin; Z79.82 Long term (current) use of aspirin | CPT/HCPCS: 11042; A6209 ==

== ENCOUNTER 2019-06-11 12:48 | Outpatient (CLI) | payer BC | END 2019-06-11 23:59 | disposition home or self-care (01) | LOC: WOU 12:48 | PROVIDERS: ATTEND Podiatrist Foot & Ankle Surgery | DX: E11.621 Type 2 diabetes mellitus with foot ulcer (principal); L97.422 Non-pressure chronic ulcer of left heel and midfoot with fat layer exposed; E11.610 Type 2 diabetes mellitus with diabetic neuropathic arthropathy; E11.42 Type 2 diabetes mellitus with diabetic polyneuropathy; M96.0 Pseudarthrosis after fusion or arthrodesis; Z79.4 Long term (current) use of insulin; Z79.899 Other long term (current) drug therapy | CPT/HCPCS: G0463 ==

== ENCOUNTER 2019-06-13 11:18 | Outpatient (CLI) | payer BC | END 2019-06-13 23:59 | disposition home or self-care (01) | LOC: WOU 11:18 | PROVIDERS: ATTEND Podiatrist Foot & Ankle Surgery | DX: E11.610 Type 2 diabetes mellitus with diabetic neuropathic arthropathy (principal); E11.42 Type 2 diabetes mellitus with diabetic polyneuropathy; I10 Essential (primary) hypertension; Z86.73 Personal history of transient ischemic attack (TIA), and cerebral infarction without residual deficits; Z86.31 Personal history of diabetic foot ulcer | CPT/HCPCS: G0463 ==

== ENCOUNTER 2019-06-24 08:10 | Outpatient (CLI) | payer BC | END 2019-06-24 23:59 | disposition home or self-care (01) | LOC: WOU 08:10 | PROVIDERS: ATTEND Podiatrist Foot & Ankle Surgery | DX: E11.622 Type 2 diabetes mellitus with other skin ulcer (principal); L97.312 Non-pressure chronic ulcer of right ankle with fat layer exposed; E11.610 Type 2 diabetes mellitus with diabetic neuropathic arthropathy; E11.42 Type 2 diabetes mellitus with diabetic polyneuropathy; Z79.4 Long term (current) use of insulin; Z79.02 Long term (current) use of antithrombotics/antiplatelets; Z98.1 Arthrodesis status | CPT/HCPCS: 82962-TC ==

== ENCOUNTER 2019-07-11 10:00 | Outpatient (CLI) | payer BC | END 2019-07-11 23:59 | disposition home or self-care (01) | LOC: WOU 10:00 | PROVIDERS: ATTEND Podiatrist Foot & Ankle Surgery | DX: Z47.89 Encounter for other orthopedic aftercare (principal); E11.610 Type 2 diabetes mellitus with diabetic neuropathic arthropathy; E11.42 Type 2 diabetes mellitus with diabetic polyneuropathy; M84.471 Pathological fracture, right ankle; Z79.4 Long term (current) use of insulin; Z79.899 Other long term (current) drug therapy ==

== ENCOUNTER 2019-07-16 14:50 | Outpatient (CLI) | payer BC ==
[2019-07-16] MEDS ORDERED: CELLULOSE,OXIDIZED 1 EA PACK MC ONE (14:51)
[2019-07-16 17:00] LABS: BASOPHILS % (AUTO) 0.6 % (0.0-2.0); EOSINOPHILS % (AUTO) 4.7 % (0.0-6.0); HEMATOCRIT 28 % (33-45); HEMOGLOBIN 9.3 g/dL (11.5-14.8); LYMPHOCYTES # (AUTO) 1.9 /CMM (0.8-4.8); LYMPHOCYTES % (AUTO) 30.6 % (20.0-44.0); MEAN CORPUSCULAR HGB CONC 33 g/dl (31.0-36.0); MEAN CORPUSCULAR VOLUME 90 fL (82-100); MONOCYTES # (AUTO) 0.7 /CMM (0.1-1.30); NEUTROPHILS # (AUTO) 3.4 /CMM (1.8-8.9); NEUTROPHILS % (AUTO) 53.1 % (43.0-81.0); PLATELET COUNT (AUTO) 359 /CMM (150-450); RED BLOOD CELL COUNT(AUTO) 3.16 MIL/uL (4.0-5.2); WHITE BLOOD COUNT (AUTO) 6.3 K/uL (4.3-11.0)
[2019-07-16] MEDS ORDERED: CLOP75TA15 PO (18:21)
[2019-07-16] MEDS ORDERED: FURO20TA4 PO (18:21)
[2019-07-16] MEDS ORDERED: ATOR40TA PO (18:21)
[2019-07-16] MEDS ORDERED: INSU100I4 SQ (18:21)
[2019-07-16] MEDS ORDERED: LEVO112T2 PO (18:21)
[2019-07-16] MEDS ORDERED: LIRA0.6P2 SQ (18:21)
[2019-07-16] MEDS ORDERED: PANT40TA4 PO (18:21)
[2019-07-16] MEDS ORDERED: LISI-603 PO (18:21)
[2019-07-16] MEDS ORDERED: NEBI20TA2 PO (18:21)
[2019-07-16] MEDS ORDERED: AMLO10TA7 PO (18:21)
[2019-07-16] MEDS ORDERED: FENO134C PO (18:21)
[2019-07-16] MEDS ORDERED: [UNRECOGNIZED DRUG - REMARK] IV (18:23)
[2019-07-16] MEDS ORDERED: ERTA1VIA4 IV (19:22)
[2019-07-16] MEDS ORDERED: DAPT500V2 IV (19:22)
== END 2019-07-16 23:59 | disposition other institution (70) ==
LOC: WOU 14:50
PROVIDERS: ATTEND Podiatrist Foot & Ankle Surgery
DX: E11.621 Type 2 diabetes mellitus with foot ulcer (principal); L97.513 Non-pressure chronic ulcer of other part of right foot with necrosis of muscle; E11.610 Type 2 diabetes mellitus with diabetic neuropathic arthropathy; T81.89XA Other complications of procedures, not elsewhere classified, initial encounter; L76.32 Postprocedural hematoma of skin and subcutaneous tissue following other procedure; Z79.02 Long term (current) use of antithrombotics/antiplatelets; D68.32 Hemorrhagic disorder due to extrinsic circulating anticoagulants; T45.515A Adverse effect of anticoagulants, initial encounter; T45.525A Adverse effect of antithrombotic drugs, initial encounter; Y92.89 Other specified places as the place of occurrence of the external cause; D50.9 Iron deficiency anemia, unspecified; E11.42 Type 2 diabetes mellitus with diabetic polyneuropathy
CPT/HCPCS: 11043; 11046; 36415; 85025; 99214; A6407; G0463

== ENCOUNTER 2019-07-16 18:01 | Inpatient (IN) | payer BC ==
[~2019-07-16] VITALS: Ht 170.2 cm; Wt 108.9 kg
--- NOTE | 2019-07-16 18:10 | NUR ---
SEND BY DR OAKES, C/O DIZZINESS S/P WOUND DEBRIDEMENT. PATIENT A/OX4, BREATHING EVEN AND UNLABORED, NO SOB NOTED, RIGHT FOOT RE-DRESSED AT DR. OAKES'S OFFICE. CAME IN WITH AKIRA PICC LINE FLUSHES WELL. NO S/SX OF INFECTION NOTED. ATTACHED TO THE CARPENTER ASSEMBLER. KEPT COMFORTABLE.
[2019-07-16] MEDS ORDERED: CLOP75TA15 PO (18:21)
[2019-07-16] MEDS ORDERED: PANT40TA4 PO (18:21)
[2019-07-16] MEDS ORDERED: LEVO112T2 PO (18:21)
[2019-07-16] MEDS ORDERED: LIRA0.6P2 SQ (18:21)
[2019-07-16] MEDS ORDERED: AMLO10TA7 PO (18:21)
[2019-07-16] MEDS ORDERED: NEBI20TA2 PO (18:21)
[2019-07-16] MEDS ORDERED: INSU100I4 SQ (18:21)
[2019-07-16] MEDS ORDERED: LISI-603 PO (18:21)
[2019-07-16] MEDS ORDERED: ATOR40TA PO (18:21)
[2019-07-16] MEDS ORDERED: FENO134C PO (18:21)
[2019-07-16] MEDS ORDERED: FURO20TA4 PO (18:21)
[2019-07-16] MEDS ORDERED: [UNRECOGNIZED DRUG - REMARK] IV (18:23)
[2019-07-16] MEDS ORDERED: IV NS 0.9% 1,000 ML BAG IV ONE (18:30)
[2019-07-16 18:38] LABS: BASOPHILS % (AUTO) 0.6 % (0.0-2.0); EOSINOPHILS % (AUTO) 4.4 % (0.0-6.0); HEMATOCRIT 26 % (33-45); HEMOGLOBIN 8.5 g/dL (11.5-14.8); LYMPHOCYTES % (AUTO) 29.6 % (20.0-44.0); MEAN CORPUSCULAR HGB CONC 33 g/dl (31.0-36.0); MEAN CORPUSCULAR VOLUME 91 fL (82-100); MONOCYTES # (AUTO) 0.6 /CMM (0.1-1.30); MONOCYTES % (AUTO) 8.7 % (2.0-12.0); NEUTROPHILS # (AUTO) 3.9 /CMM (1.8-8.9); NEUTROPHILS % (AUTO) 56.7 % (43.0-81.0); PLATELET COUNT (AUTO) 386 /CMM (150-450); RED BLOOD CELL COUNT(AUTO) 2.83 MIL/uL (4.0-5.2); WHITE BLOOD COUNT (AUTO) 6.8 K/uL (4.3-11.0)
[2019-07-16 18:49] LABS: CALCIUM, SERUM 9.3 mg/dL (8.5-10.1); CARBON DIOXIDE 25 mmol/L (21-32); CHLORIDE 106 mmol/L (98-107); CREATININE 2.8 mg/dL (0.6-1.3); GLUCOSE 154 mg/dL (74-106); POTASSIUM 3.8 mmol/L (3.5-5.1); SODIUM SERUM 140 mmol/L (136-145); UREA NITROGEN, BLOOD 42 mg/dL (7-18)
[2019-07-16 18:56] LABS: ALANINE AMINOTRANSFERASE 18 U/L (12-78); ALKALINE PHOSPHATASE 79 U/L (46-116); ASPARTATE AMINOTRANSFERASE 21 U/L (15-37); BILIRUBIN,DIRECT 0.1 mg/dL (0.0-0.2); BILIRUBIN,TOTAL 0.3 mg/dL (0.2-1.0); TOTAL PROTEIN, SERUM 6.8 g/dL (6.4-8.2)
--- NOTE | 2019-07-16 19:10 | NUR ---
CALLED [facility], PAGED ELSY CONNER
--- NOTE | 2019-07-16 19:11 | NUR ---
CALLED NURSING SUP FOR MEDSURG BED
[2019-07-16] MEDS ORDERED: ERTA1VIA4 IV (19:22)
[2019-07-16] MEDS ORDERED: DAPT500V2 IV (19:22)
[2019-07-16] MEDS ORDERED: VANCOMYCIN 1 GM in IV D5W 250 ML IV ONE (19:30)
[2019-07-16] MEDS ORDERED: PIPERACILLIN /TAZOBACTAM 2.25 G in IV D5W 50 ML IV ONE (19:30)
[2019-07-16 19:45] LABS: APPEARANCE,URINE Clear (CLEAR); BILIRUBIN,URINE Negative (NEGATIVE); BLOOD, URINE Negative Ery/uL (NEGATIVE); COLOR,URINE Yellow (YELLOW); KETONES,URINE Negative (NEGATIVE); LEUKOCYTE ESTERASE ,URINE Negative (NEGATIVE); NITRITE, URINE Negative (NEGATIVE); PH,URINE 5.5 (5.0-8.0); PROTEIN,URINE Negative (NEGATIVE); UGLUCOSE Negative (NEGATIVE); UROBILINOGEN,URINE 0.2 EU/dL (0.2)
--- NOTE | 2019-07-16 20:31 | NUR ---
322-[address] [facility]
--- NOTE | 2019-07-16 20:33 | NUR ---
REPORT GIVEN TO JAYLIN HALEY FOR SEPIDEH.
--- NOTE | 2019-07-16 20:49 | NUR ---
PATIENT TRANSFERRED TO ROOM 322 IN STABLE CONDITION. NO DISTRESS NOTED.
[2019-07-16 22:00] VITALS: BP 114/56
[2019-07-16] MEDS ORDERED: ACETAMINOPHEN 325 MG TABLET PO PRN (22:30)
[2019-07-16] MEDS ORDERED: HYDROCODONE/APAP 10/325MG 1 EA TABLET PO PRN (22:30)
[2019-07-16] MEDS ORDERED: Z GUARD REMEDY 2 OZ OINT TP PRN (22:30)
[2019-07-16] MEDS ORDERED: DEXTROSE 50%-WATER 50 ML DISP.SYRIN IV PRN (22:30)
[2019-07-16] MEDS ORDERED: ONDANSETRON HCL/PF 4 MG/2 ML VIAL IVP PRN (22:30)
[2019-07-16] MEDS: *INSULIN REGULAR(HUMULIN R)HUM 100 UNIT/ML VIAL SQ PRN (23:04)
[2019-07-16] MEDS ORDERED: ENOXAPARIN SODIUM 40 MG/0.4 ML DISP.SYRIN SQ ONE (23:30)
[2019-07-16] MEDS ORDERED: ENOXAPARIN SODIUM 30 MG/0.3 ML DISP.SYRIN SQ ONE (23:30)
[2019-07-16] MEDS ORDERED: PIPERACILLIN /TAZOBACTAM 2.25 G VIAL IV ONE (23:58)
[2019-07-17] MEDS ORDERED: PIPERACILLIN /TAZOBACTAM 3.375 G in IV D5W 50 ML IV SCH ×2
[2019-07-17] MEDS ORDERED: PIPERACILLIN /TAZOBACTAM 2.255 G in IV D5W 50 ML IV ONE (01:00)
--- NOTE | 2019-07-17 05:05 | NUR ---
ending notes: alert and orientated x3. speech clear verbalizes her needs right foot dressing small amount of bleeding thru the dressing, noted thru the dressing yellow clear drainage s/p debridement 07/16 at the wound clinic. Instructed not to remove the right foot dreefra KAY to see the dressing in the AM 07/17. medicated X1 and effective for right foot pain. right foot toes exposed warm to touch blanching present.
[2019-07-17] MEDS ORDERED: PIPERACILLIN /TAZOBACTAM 2.25 G VIAL IV ONE (05:27)
[2019-07-17] MEDS: PIPERACILLIN /TAZOBACTAM 2.255 G in IV D5W 50 ML IV SCH ×3 (06:20→18:07)
[2019-07-17] MEDS: BLOOD SUGAR DIAGNOSTIC 1 EACH STRIP IN SCH ×4 (06:23→22:24)
--- NOTE | 2019-07-17 07:30 | NUR ---
M/S RN NOTES PATIENT AWAKE, ALERT AND ORIENTED X4. PATIENT IN NO RESPIRATORY DISTRESS, NO C/O PAIN AT THIS TIME. PATIENT'S SKIN WARM TO TOUCH. PICC LINE ON THE AKIRA, INTACT AND PATENT, NO REDNESS, NO INFILTRATION NOTED. PATIENT'S NEEDS ATTENDED. BED ON LOWEST LOCKED POSITION, CALL LIGHT WITHIN REACH. WILL CONTINUE TO MONITOR.
[2019-07-17] MEDS ORDERED: FEE PK DOSING 1 MIN EA MC ONE (07:58)
[2019-07-17 08:00] VITALS: BP 108/53
[2019-07-17 08:02] LABS: ALBUMIN 2.5 g/dL (3.4-5.0); BILIRUBIN,TOTAL 0.4 mg/dL (0.2-1.0); CALCIUM, SERUM 8.3 mg/dL (8.5-10.1); CREATININE 2.8 mg/dL (0.6-1.3); MAGNESIUM 1.8 mg/dL (1.8-2.4); PHOSPHORUS 4.3 mg/dL (2.5-4.9); POTASSIUM 4.1 mmol/L (3.5-5.1); TOTAL PROTEIN, SERUM 5.8 g/dL (6.4-8.2)
[2019-07-17 08:12] LABS: THYROID STIMULATING HORMONE 0.65 uIU/mL (0.358-3.74)
[2019-07-17 08:21] LABS: BASOPHILS % (AUTO) 0.7 % (0.0-2.0); EOSINOPHILS % (AUTO) 4.6 % (0.0-6.0); HEMATOCRIT 21 % (33-45); LYMPHOCYTES # (AUTO) 0.9 /CMM (0.8-4.8); LYMPHOCYTES % (AUTO) 20.2 % (20.0-44.0); MEAN CORPUSCULAR HGB CONC 32 g/dl (31.0-36.0); MEAN CORPUSCULAR VOLUME 91 fL (82-100); MONOCYTES # (AUTO) 0.5 /CMM (0.1-1.30); MONOCYTES % (AUTO) 11.2 % (2.0-12.0); NEUTROPHILS # (AUTO) 2.8 /CMM (1.8-8.9); NEUTROPHILS % (AUTO) 63.3 % (43.0-81.0); PLATELET COUNT (AUTO) 226 /CMM (150-450); RED BLOOD CELL COUNT(AUTO) 2.32 MIL/uL (4.0-5.2); WHITE BLOOD COUNT (AUTO) 4.5 K/uL (4.3-11.0)
[2019-07-17] MEDS: PANTOPRAZOLE 40 MG TABLET.DR PO SCH (08:31)
[2019-07-17 08:32] LABS: HEMOGLOBIN 6.8 g/dL (11.5-14.8)
[2019-07-17] MEDS: LEVOTHYROXINE SODIUM 112 MCG TABLET PO SCH (08:32)
[2019-07-17] MEDS: INSULIN ASPART/LISPRO 100 UNIT/ML CARTRIDGE SQ SCH ×3 (08:36→17:45)
--- NOTE | 2019-07-17 08:48 | NUR ---
M/S RN JOSE L MEHTA FROM LAB REPORTED PATIENT'S HGB 6.8 AND HCT 21, NOTIFIED DR. SAVAGE FOR CRITICAL VALUE. PER DR. SAVAGE, 1 UNIT OF PRBC ORDERED AND TO CHECK FOR OCCULT BLOOD. ORDERS CARRIED OUT.
[2019-07-17] MEDS: AMLODIPINE BESYLATE 10 MG TABLET PO SCH ×2 (09:00→17:41)
[2019-07-17] MEDS: CARVEDILOL 6.25 MG TABLET PO SCH ×2 (09:00→21:27)
[2019-07-17] MEDS: CLOPIDOGREL BISULFATE 75 MG TABLET PO SCH (09:00)
[2019-07-17] MEDS: LISINOPRIL (20MG) 20 MG TABLET PO SCH ×2 (09:00→17:41)
[2019-07-17] MEDS: FUROSEMIDE 20 MG TABLET PO SCH (09:00)
--- NOTE | 2019-07-17 09:05 | NUR ---
M/S RN NOTES PATIENT REFUSED MD ORDER OF 1 UNIT OF PRBC DUE TO PATIENT'S BUDDHISM. DR. SAVAGE NOTIFIED AND ORDERED FOR FERRLICIT 125MG IVPB Q24H X 5 DAYS. WILL CARRY OUT.
[2019-07-17 09:07] LABS: EOSINOPHILS % (MANUAL) 4 % (0-4); LYMPHOCYTES % (MANUAL) 10 % (16-48); MONOCYTES % (MANUAL) 8 % (0-11.0); NEUTROPHILS % (MANUAL) 78 (42-76)
[2019-07-17] MEDS: Fenofibrate 48 MG TABLET PO SCH (09:38)
[2019-07-17] MEDS: ATORVASTATIN 40 MG TABLET PO SCH (09:46)
[2019-07-17] MEDS: IV 1/2NS 1000 ML 1,000 ML IV PRN (11:38)
[2019-07-17] MEDS: SOD FERRIC GLUC 125 MG in IV NS 0.9% 100 ML IV SCH (13:23)
[2019-07-17 16:00] VITALS: BP 132/64
[2019-07-17] MEDS: INSULIN REGULAR, HUMAN 100 UNIT/ML 3 ML VIAL SQ PRN (17:38)
--- NOTE | 2019-07-17 18:07 | NUR ---
Met with patient, she is alert and pleasant. She lives with her spouse and daughter in a single level dwelling. She has diabetes and reports being compliance with monitoring blood sugar at home and meds. She has diabetic foot ulcer on right foot which she is being followed by at [facility]. She is on NWB on RLE and she utilized wheelchair for mobility. States she is independent with adl's. She owns a glucometer, walker and wheelchair.Currently on service with [facility] [phone]. Her homehealth nurse is Dora [phone]. Current dc plan is to return home, spouse will provide ride. Addendum: 07/17/19 at 1810 by OLEG CISNEROS RN Amended: Links added.
--- NOTE | 2019-07-17 19:15 | NUR ---
CHANGE OF SHIFT REPORT Patient in bed, awake, appears pale and weak. Tolerating RA, denies shortness of breath. Right foot dressing C/D/I, able to wiggle toes, denies pain. AKIRA PICC LINE, dressing soiled, will change dressing tonight. Instruction to use call light for assistance, verbalized understanding.
--- NOTE | 2019-07-17 19:15 | NUR ---
M/S RN NOTES PATIENT AWAKE IN BED. NO RESPIRATORY DISTRESS, NO C/O PAIN AT THIS TIME. SKIN WARM TO TOUCH. PATIENT'S DRESSING DRY AND INTACT. IV PICC LINE INTACT AND PATENT. PATIENT'S NEEDS ATTENDED. BED ON LOWEST LOCKED POSITION, CALL LIGHT WITHIN REACH. WILL CONTINUE TO MONITOR.
[2019-07-17 20:00] VITALS: BP 137/57
[2019-07-17] MEDS ORDERED: VANCOMYCIN 1 GM in IV D5W 250 ML IV SCH (21:00)
[2019-07-17] MEDS ORDERED: MEROPENEM 500 MG in IV NS 0.9% 50 ML IV ONE (21:00)
[2019-07-17] MEDS: ENOXAPARIN SODIUM 30 MG/0.3 ML DISP.SYRIN SQ SCH (21:00)
[2019-07-17] MEDS: LINEZOLID 600 MG TABLET PO SCH (21:28)
[2019-07-17] MEDS: *INSULIN REGULAR(HUMULIN R)HUM 100 UNIT/ML VIAL SQ PRN (22:24)
[2019-07-17] MEDS: INSULIN GLARGINE, 100 UNIT/ML CARTRIDGE SQ SCH (22:38)
--- NOTE | 2019-07-17 22:47 | NUR ---
HOLD LOVENOX SQ Hgb 6.8 Hct [address] Olivier Becker, order to hold Lovenox SQ dose tonight.
[2019-07-18] MEDS: MEROPENEM 500 MG in IV NS 0.9% 100 ML IV SCH ×2 (05:34→18:22)
[2019-07-18] MEDS: IV 1/2NS 1000 ML 1,000 ML IV PRN (05:45)
[2019-07-18] MEDS ORDERED: INFLUENZA VACCINE 2019-20 0.5 ML DISP.SYRIN IM ONE (06:00)
--- NOTE | 2019-07-18 06:18 | NUR ---
END OF SHIFT REPORT Patient in bed, stable oxygen saturation on RA. Right foot dressing C/D/I. RLE CSM intact, denies pain. IVF infusing, IV abx as schedule. PICC line AKIRA dressing changed this shift 07/17/19. No BM during the shift, stool to be collected for stool OB, patient is aware. Hourly rounds, slept well, fall precaution maintained.
[2019-07-18] MEDS: BLOOD SUGAR DIAGNOSTIC 1 EACH STRIP IN SCH ×4 (06:30→21:19)
[2019-07-18] MEDS: INSULIN REGULAR, HUMAN 100 UNIT/ML 3 ML VIAL SQ PRN ×3 (06:31→17:11)
--- NOTE | 2019-07-18 07:05 | NUR ---
MS RN NOTES PATIENT IN BED ALERT ORIENTED X 4. NO ACUTE DISTRESS NOTED. BREATHING UNLABORED. NO SOB NOTED. IV ACCESS PATENT AND INTACT, NO REDNESS OR SWELLING NOTED. DUE MEDICATIONS GIVEN, NO ASE NOTED. SAFETY MEASURES IN PLACE. CALL LIGHT WITHIN REACH. WIN CONTINUE TO MONITOR ACCORDINGLY
[2019-07-18] MEDS: LEVOTHYROXINE SODIUM 112 MCG TABLET PO SCH (07:56)
[2019-07-18] MEDS: PANTOPRAZOLE 40 MG TABLET.DR PO SCH (07:56)
[2019-07-18 08:00] VITALS: BP 135/69
[2019-07-18] MEDS: INSULIN ASPART/LISPRO 100 UNIT/ML CARTRIDGE SQ SCH ×3 (08:00→17:11)
[2019-07-18 08:42] LABS: BASOPHILS % (AUTO) 0.9 % (0.0-2.0); EOSINOPHILS % (AUTO) 7.5 % (0.0-6.0); HEMATOCRIT 23 % (33-45); HEMOGLOBIN 7.6 g/dL (11.5-14.8); LYMPHOCYTES # (AUTO) 1.1 /CMM (0.8-4.8); LYMPHOCYTES % (AUTO) 30.7 % (20.0-44.0); MEAN CORPUSCULAR HGB CONC 33 g/dl (31.0-36.0); MEAN CORPUSCULAR VOLUME 90 fL (82-100); MONOCYTES # (AUTO) 0.4 /CMM (0.1-1.30); MONOCYTES % (AUTO) 11.4 % (2.0-12.0); NEUTROPHILS # (AUTO) 1.7 /CMM (1.8-8.9); NEUTROPHILS % (AUTO) 49.5 % (43.0-81.0); PLATELET COUNT (AUTO) 233 /CMM (150-450); RED BLOOD CELL COUNT(AUTO) 2.54 MIL/uL (4.0-5.2); WHITE BLOOD COUNT (AUTO) 3.5 K/uL (4.3-11.0)
[2019-07-18 08:50] LABS: CALCIUM, SERUM 8.8 mg/dL (8.5-10.1); CREATININE 2.3 mg/dL (0.6-1.3)
[2019-07-18] MEDS: CLOPIDOGREL BISULFATE 75 MG TABLET PO SCH (09:00)
[2019-07-18] MEDS: FUROSEMIDE 20 MG TABLET PO SCH (09:27)
[2019-07-18] MEDS: Fenofibrate 48 MG TABLET PO SCH (09:28)
[2019-07-18] MEDS: LISINOPRIL (20MG) 20 MG TABLET PO SCH ×2 (09:28→16:48)
[2019-07-18] MEDS: ATORVASTATIN 40 MG TABLET PO SCH (09:28)
[2019-07-18] MEDS: AMLODIPINE BESYLATE 10 MG TABLET PO SCH ×2 (09:29→16:48)
[2019-07-18] MEDS: CARVEDILOL 6.25 MG TABLET PO SCH ×2 (09:29→21:07)
[2019-07-18] MEDS: LINEZOLID 600 MG TABLET PO SCH ×2 (09:36→21:05)
[2019-07-18] MEDS: SOD FERRIC GLUC 125 MG in IV NS 0.9% 100 ML IV SCH (13:35)
[2019-07-18 14:34] LABS: OCCULT BLOOD STOOL NEGATIVE (NEGATIVE)
[2019-07-18 15:57] VITALS: BP 124/64
[2019-07-18] MEDS: LACTOBACILLUS RHAMNOSUS GG 1 EACH CAP.SPRINK PO SCH (16:48)
--- NOTE | 2019-07-18 19:00 | NUR ---
MS RN NOTES PATIENT IN BED ALERT ORIENTED X 4. NO ACUTE DISTRESS NOTED. BREATHING UNLABORED. NO SOB NOTED. IV ACCESS PATENT AND INTACT, NO REDNESS OR SWELLING NOTED. DUE MEDICATIONS GIVEN, NO ASE NOTED. NEEDS ATTENDED AND ANTICIPATED. KEPT CLEAN DRY AND COMFORTABLE. SAFETY MEASURES IN PLACE. CALL LIGHT WITHIN REACH. WILL ENDORSE TO NIGHT NURSE FOR CONTINUITY OF CARE.
[2019-07-18 20:00] VITALS: BP 139/66
--- NOTE | 2019-07-18 20:00 | NUR ---
RN NOTES RECEIVED PATIENT IN BED, ALERT AND ORIENTED X4, ROOM AIR, DENIES PAIN AT THIS TIME, RIGHT FOOT CELLULITIS SECURED WITH DRESSING, DRY AND INTACT, OFFLOADED, USES BSC, KEPT SAFE, CALL LIGHT WITHIN REACH
[2019-07-18] MEDS: ENOXAPARIN SODIUM 30 MG/0.3 ML DISP.SYRIN SQ SCH (21:08)
[2019-07-18] MEDS: INSULIN GLARGINE, 100 UNIT/ML CARTRIDGE SQ SCH (21:18)
--- NOTE | 2019-07-18 22:00 | NUR ---
RN NOTES PER DR. CONNER, GIVE LOVENOX, HGB 8.5, PLT 386
[2019-07-18] MEDS: *INSULIN REGULAR(HUMULIN R)HUM 100 UNIT/ML VIAL SQ PRN (22:15)
--- NOTE | 2019-07-18 22:16 | NUR ---
RN NOTES INSULIN HELD, BG 127 MG/DL, GIVEN LANTUS 20 UNITS
--- NOTE | 2019-07-19 03:32 | NUR ---
RN NOTES CORRECTED REPORT OF HGB TO DR. CONNER OF 7.6, LOVENOX GIVEN. PER DR. CONNER DC LOVENOX Addendum: 07/19/19 at 0640 by ALBANIA MORRISON RN CLARIFICATION: PER DR. CONNER, WITH HGB OR 7.6, IT'S OK TO GIVE LOVENOX. LOVENOX DISCONTINUED FOR NEXT SCHEDULE
[2019-07-19] MEDS: MEROPENEM 500 MG in IV NS 0.9% 100 ML IV SCH ×2 (06:02→18:25)
[2019-07-19] MEDS: IV 1/2NS 1000 ML 1,000 ML IV PRN (06:02)
[2019-07-19] MEDS: BLOOD SUGAR DIAGNOSTIC 1 EACH STRIP IN SCH ×4 (06:37→21:24)
[2019-07-19] MEDS: INSULIN REGULAR, HUMAN 100 UNIT/ML 3 ML VIAL SQ PRN ×2 (06:38→17:40)
--- NOTE | 2019-07-19 06:41 | NUR ---
RN NOTES PM SHIFT PATIENT ALERT AND ORIENTED, STABLE ON ROOM AIR, NO CHANGE OF CONDITION DURING SHIFT, CONTINUE PHONG HARDY, S/P RIGHT FOOT WOUND DEBRIDEMENT, DRESSING DRY AND INTACT, OFFLOADED, FIRST DRESSING CHANGED WILL BE DONE BY RISK COMPLIANCE ANALYST, BG 102 MG/DL, NO INSULIN GIVEN, RECEIVED LANTUS 20 UNITS SCHEDULED.
[2019-07-19 07:30] VITALS: BP 137/56
[2019-07-19 07:30] LABS: CALCIUM, SERUM 7.8 mg/dL (8.5-10.1); CREATININE 1.9 mg/dL (0.6-1.3); POTASSIUM 3.5 mmol/L (3.5-5.1)
--- NOTE | 2019-07-19 07:30 | NUR ---
RN MS NOTES PT IN BED, AWAKE, ALERT AND ORIENTED, NO COMPLAINT OF PAIN, RESPIRATIONS NORMAL, IV FLUIDS INFUSING WELL, CALL LIGHT WITHIN REACH, NEEDS ATTENDED.
[2019-07-19] MEDS: ATORVASTATIN 40 MG TABLET PO SCH (08:34)
[2019-07-19] MEDS: CARVEDILOL 6.25 MG TABLET PO SCH ×2 (08:35→21:00)
[2019-07-19] MEDS: AMLODIPINE BESYLATE 10 MG TABLET PO SCH ×2 (08:35→16:20)
[2019-07-19] MEDS: Fenofibrate 48 MG TABLET PO SCH (08:36)
[2019-07-19] MEDS: LACTOBACILLUS RHAMNOSUS GG 1 EACH CAP.SPRINK PO SCH ×2 (08:36→16:20)
[2019-07-19] MEDS: LINEZOLID 600 MG TABLET PO SCH ×2 (08:36→21:23)
[2019-07-19] MEDS: FUROSEMIDE 20 MG TABLET PO SCH (08:36)
[2019-07-19] MEDS: LEVOTHYROXINE SODIUM 112 MCG TABLET PO SCH (08:36)
[2019-07-19] MEDS: LISINOPRIL (20MG) 20 MG TABLET PO SCH ×2 (08:36→16:21)
[2019-07-19] MEDS: PANTOPRAZOLE 40 MG TABLET.DR PO SCH (08:36)
[2019-07-19] MEDS: INSULIN ASPART/LISPRO 100 UNIT/ML CARTRIDGE SQ SCH ×3 (08:45→17:38)
[2019-07-19] MEDS: CLOPIDOGREL BISULFATE 75 MG TABLET PO SCH (09:00)
--- NOTE | 2019-07-19 09:00 | NUR ---
RN MS NOTES PLAVIX HELD, LOW H/H
--- NOTE | 2019-07-19 09:59 | NUR ---
RN MS NOTES PT SEEN AND EXAMINED BY DR. SAVAGE, PLAN OF CARE DISCUSSED WITH PT, VERBALIZED UNDERSTANDING.
--- NOTE | 2019-07-19 13:00 | NUR ---
RN MS NOTES PT IN BED, AWAKE, ALERT AND ORIENTED, DENIES PAIN, NOT IN DISTRESS, IV FLUIDS INFUSING WELL, CALL LIGHT WITHIN REACH, DUE MEDS GIVEN ORDERED, NEEDS ATTENDED.
[2019-07-19] MEDS: SOD FERRIC GLUC 125 MG in IV NS 0.9% 100 ML IV SCH (14:22)
[2019-07-19 16:00] VITALS: BP 120/50
--- NOTE | 2019-07-19 19:04 | NUR ---
RN MS NOTES PT IN BED, AWAKE, ALERT AND ORIENTED, NO COMPLAINT OF PAIN, RESPIRATIONS NORMAL, IV FLUIDS INFUSING WELL, CALL LIGHT WITHIN REACH, PM MEDS GIVEN ORDERED, TOLERATING CURRENT DIET, ALL NEEDS ATTENDED.
--- NOTE | 2019-07-19 19:30 | NUR ---
MS RN NOTES RECEIVED ON BED A/O X4,BREATHING NORMAL,NOT IN ANY FORM DISTRESS.DENIES PAIN DISCOMFORTS.WITH IBF 1/2 NS AT 75ML/HR RATE,INFUSING VIA IV PUMP ON AKIRA PICC LINE.RIGHT FOOT DRESSING INTACT AND DRY,ELEVATED ON PILLOWS.CALL LIGHT IN REACH,NEEDS ANTICIPATED.
[2019-07-19 20:00] VITALS: BP 120/58
--- NOTE | 2019-07-19 21:30 | NUR ---
MS RN NOTES ACCU-CHECK BLOOD SUGAR CHECK 135MG/DL,COVERED LANTUS 20 UNITS SCHEDULED,REFUSED HUMULIN R 2 UNITS PER SLIDING SCALE.
[2019-07-19] MEDS: *INSULIN REGULAR(HUMULIN R)HUM 100 UNIT/ML VIAL SQ PRN (21:35)
[2019-07-19] MEDS: INSULIN GLARGINE, 100 UNIT/ML CARTRIDGE SQ SCH (21:38)
[2019-07-20] MEDS: MEROPENEM 500 MG in IV NS 0.9% 100 ML IV SCH ×2 (05:36→17:14)
[2019-07-20] MEDS: BLOOD SUGAR DIAGNOSTIC 1 EACH STRIP IN SCH ×4 (06:00→21:27)
--- NOTE | 2019-07-20 06:00 | NUR ---
MS RN NOTES ACCU-CHECK BLOOD SUGAR CHECK 85,NO INSULIN COVERAGE.
--- NOTE | 2019-07-20 06:43 | NUR ---
MS RN NOTES SLEPT WELL,DENIES PAIN,RIGHT FOOT DRESSING REMAINS DRY,ELEVATED ON PILLOWS.IN NO ACUTE DISTRESS.WILL ENDORSE TO DAY NURSE FOR SEPIDEH.
--- NOTE | 2019-07-20 07:30 | NUR ---
RN MS NOTES PT IN BED, ASLEEP, EASY TO AROUSE, ALERT AND ORIENTED, NO COMPLAINT OF PAIN, NOT IN DISTRESS, CALL LIGHT WITHIN REACH, IV FLUIDS INFUSING WELL, KEPT WARM AND COMFORTABLE IN BED.
[2019-07-20 08:00] VITALS: BP 125/54
[2019-07-20] MEDS: PANTOPRAZOLE 40 MG TABLET.DR PO SCH (08:06)
[2019-07-20] MEDS: LEVOTHYROXINE SODIUM 112 MCG TABLET PO SCH (08:06)
[2019-07-20] MEDS: INSULIN ASPART/LISPRO 100 UNIT/ML CARTRIDGE SQ SCH ×3 (08:10→17:14)
[2019-07-20] MEDS: Fenofibrate 48 MG TABLET PO SCH (08:44)
[2019-07-20] MEDS: ATORVASTATIN 40 MG TABLET PO SCH (08:44)
[2019-07-20] MEDS: AMLODIPINE BESYLATE 10 MG TABLET PO SCH ×2 (08:44→17:07)
[2019-07-20] MEDS: FUROSEMIDE 20 MG TABLET PO SCH (08:44)
[2019-07-20] MEDS: LACTOBACILLUS RHAMNOSUS GG 1 EACH CAP.SPRINK PO SCH ×2 (08:44→18:22)
[2019-07-20] MEDS: LISINOPRIL (20MG) 20 MG TABLET PO SCH ×2 (08:44→17:08)
[2019-07-20] MEDS: CARVEDILOL 6.25 MG TABLET PO SCH ×2 (08:44→21:26)
[2019-07-20] MEDS: LINEZOLID 600 MG TABLET PO SCH ×2 (08:47→21:26)
[2019-07-20 08:56] LABS: CALCIUM, SERUM 8.5 mg/dL (8.5-10.1); CREATININE 1.9 mg/dL (0.6-1.3); POTASSIUM 3.9 mmol/L (3.5-5.1)
[2019-07-20] MEDS: CLOPIDOGREL BISULFATE 75 MG TABLET PO SCH (09:00)
--- NOTE | 2019-07-20 09:27 | NUR ---
RN MS NOTES PT SEEN AND EXAMINED BY DR. SAVAGE, PLAN OF CARE DISCUSSED WITH PT, VERBALIZED UNDERSTANDING.
[2019-07-20] MEDS: INSULIN REGULAR, HUMAN 100 UNIT/ML 3 ML VIAL SQ PRN (12:09)
[2019-07-20] MEDS: IV 1/2NS 1000 ML 1,000 ML IV PRN (12:13)
[2019-07-20] MEDS: SOD FERRIC GLUC 125 MG in IV NS 0.9% 100 ML IV SCH (13:42)
[2019-07-20 16:00] VITALS: BP 130/60
--- NOTE | 2019-07-20 18:11 | NUR ---
RN MS NOTES PT IN BED, AWAKE, ALERT AND ORIENTED, WATCHING TV, NOT IN PAIN OR DISTRESS, IV FLUIDS INFUSING WELL, PM MEDS GIVEN ORDERED, CALL LIGHT PLACED WITHIN EASY REACH, ALL NEEDS ATTENDED.
--- NOTE | 2019-07-20 19:31 | NUR ---
MS RN NOTES RECEIVED ON BED A/O X4,RIGHT FOOT DRESSING INTACT AND DRY.IVF 1/2 NS AT 75ML/HR RATE IN PROGRESS VIA IV PUMP ON RIGHT UPPER ARM PICC LINE.DENIES DISCOMFORTS AT THE MOMENT.CALL LIGHT IN REACH,NEEDS ANTICIPATED.
[2019-07-20 20:00] VITALS: BP 127/50
--- NOTE | 2019-07-20 21:30 | NUR ---
MS RN NOTES ACCU-CHECK BLOOD SUGAR CHECK 199,REFUSED HUMULIN R COVERAGE.LANTUS 20 UNITS ADMINISTERED SQ ORDERED
[2019-07-20] MEDS: INSULIN GLARGINE, 100 UNIT/ML CARTRIDGE SQ SCH (21:39)
[2019-07-21] MEDS: MEROPENEM 500 MG in IV NS 0.9% 100 ML IV SCH ×2 (05:24→16:08)
--- NOTE | 2019-07-21 05:30 | NUR ---
MS RN NOTES BLOOD DRAW FOR LABS DONE,DUE IV ABX HUNG,INFUSING AT THIS TIME OVER THREE HOURS.RIGHT FOOT DRESSING REMAINS DRY.POSSIBLE D/C HOME WITH HOME HEALTH. IN NO ACUTE DISTRESS.WILL ENDORSE TO DAY NURSE FOR SURGERY.
[2019-07-21 05:35] LABS: CALCIUM, SERUM 8.3 mg/dL (8.5-10.1); CREATININE 1.9 mg/dL (0.6-1.3); POTASSIUM 3.9 mmol/L (3.5-5.1)
[2019-07-21] MEDS: IV 1/2NS 1000 ML 1,000 ML IV PRN (05:40)
[2019-07-21 08:00] VITALS: BP 150/64
--- NOTE | 2019-07-21 08:05 | NUR ---
RN OPENING NOTES PT AWAKE AND RESTING IN BED. NO COMPLAINTS OF PAIN, SOB OR DISTRESS AT THIS TIME. PT HAS RIGHT UPPER ARM PICC LINE RUNNING 1/2NS @75ML/HR. PT NWB RIGHT FOOT. SAFETY PRECAUTIONS IN PLACE, BED IN LOWEST LOCKED POSITION, X2 SIDE RAILS UP AND CALL LIGHT WITHIN REACH. WILL CONTINUE TO MONITOR.
[2019-07-21] MEDS: PANTOPRAZOLE 40 MG TABLET.DR PO SCH (08:31)
[2019-07-21] MEDS: LINEZOLID 600 MG TABLET PO SCH (08:31)
[2019-07-21] MEDS: BLOOD SUGAR DIAGNOSTIC 1 EACH STRIP IN SCH ×3 (08:31→17:27)
[2019-07-21] MEDS: LEVOTHYROXINE SODIUM 112 MCG TABLET PO SCH (08:32)
[2019-07-21] MEDS: LACTOBACILLUS RHAMNOSUS GG 1 EACH CAP.SPRINK PO SCH ×2 (08:33→17:28)
[2019-07-21] MEDS: FUROSEMIDE 20 MG TABLET PO SCH (08:33)
[2019-07-21] MEDS: CARVEDILOL 6.25 MG TABLET PO SCH (08:33)
[2019-07-21] MEDS: LISINOPRIL (20MG) 20 MG TABLET PO SCH ×2 (08:33→17:28)
[2019-07-21] MEDS: Fenofibrate 48 MG TABLET PO SCH (08:34)
[2019-07-21] MEDS: AMLODIPINE BESYLATE 10 MG TABLET PO SCH ×2 (08:34→17:28)
[2019-07-21] MEDS: ATORVASTATIN 40 MG TABLET PO SCH (08:34)
[2019-07-21] MEDS: CLOPIDOGREL BISULFATE 75 MG TABLET PO SCH (08:34)
[2019-07-21] MEDS: INSULIN ASPART/LISPRO 100 UNIT/ML CARTRIDGE SQ SCH ×3 (08:35→17:32)
[2019-07-21] MEDS: SOD FERRIC GLUC 125 MG in IV NS 0.9% 100 ML IV SCH (13:01)
[2019-07-21 16:00] VITALS: BP 136/65
[2019-07-21 17:28] VITALS: BP 148/66
--- NOTE | 2019-07-21 18:15 | NUR ---
rn surgical pcu notes pt stable at discharge. all belongings taken with patient. patient will keep right upper arm picc line for home health iv abx. all discharge paperwork explained, signed, copied, and given to patient. pt escorted off of unit at 1815 by michael, accompanied by , and daughter.
== END 2019-07-21 18:15 | disposition home health service (06) | DRG 602 ==
LOC: ER 18:03 → MED 20:05
PROVIDERS: ADMIT Nurse Practitioner Acute Care; ATTEND Internal Medicine
DX: L03.115 Cellulitis of right lower limb (principal); N17.0 Acute kidney failure with tubular necrosis; M86.9 Osteomyelitis, unspecified; E78.5 Hyperlipidemia, unspecified; E03.9 Hypothyroidism, unspecified; M10.9 Gout, unspecified; D63.8 Anemia in other chronic diseases classified elsewhere; E11.610 Type 2 diabetes mellitus with diabetic neuropathic arthropathy; I12.9 Hypertensive chronic kidney disease with stage 1 through stage 4 chronic kidney disease, or unspecified chronic kidney disease; E11.22 Type 2 diabetes mellitus with diabetic chronic kidney disease; E11.42 Type 2 diabetes mellitus with diabetic polyneuropathy; N18.9 Chronic kidney disease, unspecified; E11.69 Type 2 diabetes mellitus with other specified complication; E11.51 Type 2 diabetes mellitus with diabetic peripheral angiopathy without gangrene; E11.621 Type 2 diabetes mellitus with foot ulcer; L97.519 Non-pressure chronic ulcer of other part of right foot with unspecified severity; S90.31XA Contusion of right foot, initial encounter; X58.XXXA Exposure to other specified factors, initial encounter; Y92.89 Other specified places as the place of occurrence of the external cause
CPT/HCPCS: 36415; 71045-TC; 73610-TC; 73630-TC; 80048-TC; 80053-TC; 80061-TC; 80076-TC; 81000-TC; 82272-TC; 82962-TC; 83605-TC; 83735-TC; 84100-TC; 84443-TC; 84484-TC; 85025-TC; 85730-TC; 87040-TC; 87081-TC; 87086-TC; A4216; A6253; A6403; G0378; J1650; J1815; J2185; J2543; J2916; J3370; J3490; J7030; J7060; Q2036

== ENCOUNTER 2019-07-23 12:52 | Outpatient (CLI) | payer BC ==
[~2019-07-23 12:52] MED LIST: AMLO10TA7 PO; ATOR40TA PO; CLOP75TA15 PO; DAPT500V2 IV; ERTA1VIA4 IV; FENO134C PO; FURO20TA4 PO; INSU100I4 SQ; LEVO112T2 PO; LIRA0.6P2 SQ; LISI-603 PO; NEBI20TA2 PO; PANT40TA4 PO
== END 2019-07-23 23:59 | disposition home or self-care (01) ==
LOC: WOU 12:52
PROVIDERS: ATTEND Podiatrist Foot & Ankle Surgery
DX: E11.621 Type 2 diabetes mellitus with foot ulcer (principal); L97.413 Non-pressure chronic ulcer of right heel and midfoot with necrosis of muscle; E11.610 Type 2 diabetes mellitus with diabetic neuropathic arthropathy; E11.42 Type 2 diabetes mellitus with diabetic polyneuropathy; D50.9 Iron deficiency anemia, unspecified; R58 Hemorrhage, not elsewhere classified; T81.89XA Other complications of procedures, not elsewhere classified, initial encounter
CPT/HCPCS: 11042; A6253

== ENCOUNTER 2019-07-29 08:30 | Outpatient (CLI) | payer BC | END 2019-07-29 23:59 | disposition home health service (06) | LOC: WOU 08:30 | PROVIDERS: ATTEND Podiatrist Foot & Ankle Surgery | DX: E11.621 Type 2 diabetes mellitus with foot ulcer (principal); L97.513 Non-pressure chronic ulcer of other part of right foot with necrosis of muscle; T81.89XD Other complications of procedures, not elsewhere classified, subsequent encounter; E11.610 Type 2 diabetes mellitus with diabetic neuropathic arthropathy; E11.42 Type 2 diabetes mellitus with diabetic polyneuropathy; Z79.4 Long term (current) use of insulin; R58 Hemorrhage, not elsewhere classified; D50.9 Iron deficiency anemia, unspecified; Z79.02 Long term (current) use of antithrombotics/antiplatelets | CPT/HCPCS: 11043; A6407 ==

== ENCOUNTER 2019-08-01 10:12 | Outpatient (CLI) | payer BC | END 2019-08-01 23:59 | disposition home health service (06) | LOC: WOU 10:12 | PROVIDERS: ATTEND Podiatrist Foot & Ankle Surgery | DX: T81.31XA Disruption of external operation (surgical) wound, not elsewhere classified, initial encounter (principal); E11.610 Type 2 diabetes mellitus with diabetic neuropathic arthropathy; L97.513 Non-pressure chronic ulcer of other part of right foot with necrosis of muscle; L97.316 Non-pressure chronic ulcer of right ankle with bone involvement without evidence of necrosis; E11.42 Type 2 diabetes mellitus with diabetic polyneuropathy; M96.0 Pseudarthrosis after fusion or arthrodesis; Z79.4 Long term (current) use of insulin | CPT/HCPCS: 11042; 11043; 11046; 97605; A6209 ==

== ENCOUNTER 2019-08-05 11:05 | Outpatient (CLI) | payer BC | END 2019-08-05 23:59 | disposition home health service (06) | LOC: WOU 11:05 | PROVIDERS: ATTEND Podiatrist Foot & Ankle Surgery | DX: T81.89XA Other complications of procedures, not elsewhere classified, initial encounter (principal); E11.621 Type 2 diabetes mellitus with foot ulcer; L97.513 Non-pressure chronic ulcer of other part of right foot with necrosis of muscle; E11.610 Type 2 diabetes mellitus with diabetic neuropathic arthropathy; E11.42 Type 2 diabetes mellitus with diabetic polyneuropathy; Z79.4 Long term (current) use of insulin; Z79.02 Long term (current) use of antithrombotics/antiplatelets; R58 Hemorrhage, not elsewhere classified; D50.9 Iron deficiency anemia, unspecified | CPT/HCPCS: 11042; 11043; 11046; 97605; A6209 ==

== ENCOUNTER 2019-08-08 10:55 | Outpatient (CLI) | payer BC | END 2019-08-08 23:59 | disposition home health service (06) | LOC: WOU 10:55 | PROVIDERS: ATTEND Podiatrist Foot & Ankle Surgery | DX: T81.89XA Other complications of procedures, not elsewhere classified, initial encounter (principal); E11.610 Type 2 diabetes mellitus with diabetic neuropathic arthropathy; E11.42 Type 2 diabetes mellitus with diabetic polyneuropathy; E11.621 Type 2 diabetes mellitus with foot ulcer; L97.513 Non-pressure chronic ulcer of other part of right foot with necrosis of muscle; Z79.4 Long term (current) use of insulin; Z79.82 Long term (current) use of aspirin | CPT/HCPCS: 11042; 11043; 97605-TC ==

== ENCOUNTER 2019-08-12 11:05 | Outpatient (CLI) | payer BC | END 2019-08-12 23:59 | disposition home health service (06) | LOC: WOU 11:05 | PROVIDERS: ATTEND Podiatrist Foot & Ankle Surgery | DX: E11.621 Type 2 diabetes mellitus with foot ulcer (principal); L97.513 Non-pressure chronic ulcer of other part of right foot with necrosis of muscle; T81.89XA Other complications of procedures, not elsewhere classified, initial encounter; E11.610 Type 2 diabetes mellitus with diabetic neuropathic arthropathy; E11.42 Type 2 diabetes mellitus with diabetic polyneuropathy; Z79.4 Long term (current) use of insulin; M25.373 Other instability, unspecified ankle; Z79.02 Long term (current) use of antithrombotics/antiplatelets | CPT/HCPCS: 11042; 11043; 97605-TC ==

== ENCOUNTER 2019-08-15 10:50 | Outpatient (CLI) | payer BC | END 2019-08-15 23:59 | disposition home health service (06) | LOC: WOU 10:50 | PROVIDERS: ATTEND Podiatrist Foot & Ankle Surgery | DX: T81.89XA Other complications of procedures, not elsewhere classified, initial encounter (principal); E11.610 Type 2 diabetes mellitus with diabetic neuropathic arthropathy; E11.621 Type 2 diabetes mellitus with foot ulcer; L97.515 Non-pressure chronic ulcer of other part of right foot with muscle involvement without evidence of necrosis; X58.XXXA Exposure to other specified factors, initial encounter; Y92.89 Other specified places as the place of occurrence of the external cause; M25.371 Other instability, right ankle; M84.471 Pathological fracture, right ankle; S90.521A Blister (nonthermal), right ankle, initial encounter | CPT/HCPCS: 11042; 11043; 11046; 97605; A6253; 11045 ==

== ENCOUNTER 2019-08-20 09:35 | Outpatient (CLI) | payer BC | END 2019-08-20 23:59 | disposition home health service (06) | LOC: WOU 09:35 | PROVIDERS: ATTEND Specialist | DX: Z01.818 Encounter for other preprocedural examination (principal); E11.69 Type 2 diabetes mellitus with other specified complication; M86.371 Chronic multifocal osteomyelitis, right ankle and foot; E11.610 Type 2 diabetes mellitus with diabetic neuropathic arthropathy; E11.42 Type 2 diabetes mellitus with diabetic polyneuropathy; D50.9 Iron deficiency anemia, unspecified; E11.621 Type 2 diabetes mellitus with foot ulcer; L97.515 Non-pressure chronic ulcer of other part of right foot with muscle involvement without evidence of necrosis; Z79.4 Long term (current) use of insulin; Z79.02 Long term (current) use of antithrombotics/antiplatelets | CPT/HCPCS: 97605; A6253 ==

== ENCOUNTER 2019-08-22 10:45 | Outpatient (CLI) | payer BC | END 2019-08-22 23:59 | disposition home health service (06) | LOC: WOU 10:45 | PROVIDERS: ATTEND Specialist | DX: E11.621 Type 2 diabetes mellitus with foot ulcer (principal); L97.413 Non-pressure chronic ulcer of right heel and midfoot with necrosis of muscle; Z79.4 Long term (current) use of insulin; E11.610 Type 2 diabetes mellitus with diabetic neuropathic arthropathy; D50.9 Iron deficiency anemia, unspecified; E11.69 Type 2 diabetes mellitus with other specified complication; M86.371 Chronic multifocal osteomyelitis, right ankle and foot; E11.42 Type 2 diabetes mellitus with diabetic polyneuropathy; M84.471 Pathological fracture, right ankle | CPT/HCPCS: 11042; 11043; 11046; 97605; A6253 ==

== ENCOUNTER 2019-08-26 11:03 | Outpatient (CLI) | payer BC | END 2019-08-26 23:59 | disposition home health service (06) | LOC: WOU 11:03 | PROVIDERS: ATTEND Podiatrist Foot & Ankle Surgery | DX: E11.621 Type 2 diabetes mellitus with foot ulcer (principal); L97.512 Non-pressure chronic ulcer of other part of right foot with fat layer exposed; L97.515 Non-pressure chronic ulcer of other part of right foot with muscle involvement without evidence of necrosis; T81.89XA Other complications of procedures, not elsewhere classified, initial encounter; E11.610 Type 2 diabetes mellitus with diabetic neuropathic arthropathy; E11.42 Type 2 diabetes mellitus with diabetic polyneuropathy; E11.69 Type 2 diabetes mellitus with other specified complication; M86.371 Chronic multifocal osteomyelitis, right ankle and foot; Z79.4 Long term (current) use of insulin; R58 Hemorrhage, not elsewhere classified; D50.9 Iron deficiency anemia, unspecified; Z79.02 Long term (current) use of antithrombotics/antiplatelets; Z79.899 Other long term (current) drug therapy | CPT/HCPCS: 11042; 11043; 11046; 97605; A6253 ==

== ENCOUNTER 2019-08-29 10:50 | Outpatient (CLI) | payer BC | END 2019-08-29 23:59 | disposition home health service (06) | LOC: WOU 10:50 | PROVIDERS: ATTEND Podiatrist Foot & Ankle Surgery | DX: Z48.817 Encounter for surgical aftercare following surgery on the skin and subcutaneous tissue (principal); E11.621 Type 2 diabetes mellitus with foot ulcer; L97.413 Non-pressure chronic ulcer of right heel and midfoot with necrosis of muscle; L97.512 Non-pressure chronic ulcer of other part of right foot with fat layer exposed; E11.610 Type 2 diabetes mellitus with diabetic neuropathic arthropathy; D50.9 Iron deficiency anemia, unspecified; E11.69 Type 2 diabetes mellitus with other specified complication; M86.371 Chronic multifocal osteomyelitis, right ankle and foot; E11.42 Type 2 diabetes mellitus with diabetic polyneuropathy | CPT/HCPCS: 11042; 11043; 11046; 97605; A6253 ==

== ENCOUNTER → 2019-09-02 | Outpatient (CLI) | payer BC | END | disposition home health service (06) | LOC: WOU 08:15 | PROVIDERS: ATTEND Podiatrist Foot & Ankle Surgery | DX: E11.621 Type 2 diabetes mellitus with foot ulcer (principal); L97.512 Non-pressure chronic ulcer of other part of right foot with fat layer exposed; L97.515 Non-pressure chronic ulcer of other part of right foot with muscle involvement without evidence of necrosis; T81.89XA Other complications of procedures, not elsewhere classified, initial encounter; E11.610 Type 2 diabetes mellitus with diabetic neuropathic arthropathy; E11.42 Type 2 diabetes mellitus with diabetic polyneuropathy; E11.69 Type 2 diabetes mellitus with other specified complication; M86.371 Chronic multifocal osteomyelitis, right ankle and foot; Z79.4 Long term (current) use of insulin; D50.9 Iron deficiency anemia, unspecified; Z79.02 Long term (current) use of antithrombotics/antiplatelets; Z79.899 Other long term (current) drug therapy | CPT/HCPCS: 11042; 11043; 11046; 97605; A6253 ==

== ENCOUNTER 2019-09-09 10:40 | Outpatient (CLI) | payer BC | END 2019-09-09 23:59 | disposition home health service (06) | LOC: WOU 10:40 | PROVIDERS: ATTEND Podiatrist Foot & Ankle Surgery | DX: E11.621 Type 2 diabetes mellitus with foot ulcer (principal); L97.512 Non-pressure chronic ulcer of other part of right foot with fat layer exposed; L97.515 Non-pressure chronic ulcer of other part of right foot with muscle involvement without evidence of necrosis; T81.89XA Other complications of procedures, not elsewhere classified, initial encounter; E11.610 Type 2 diabetes mellitus with diabetic neuropathic arthropathy; E11.42 Type 2 diabetes mellitus with diabetic polyneuropathy; E11.69 Type 2 diabetes mellitus with other specified complication; M86.371 Chronic multifocal osteomyelitis, right ankle and foot; D50.9 Iron deficiency anemia, unspecified; Z79.4 Long term (current) use of insulin; Z79.02 Long term (current) use of antithrombotics/antiplatelets | CPT/HCPCS: 11042; 11043; 11046; 97605; A6209; 82962-TC ==

== ENCOUNTER → 2019-09-12 | Outpatient (CLI) | payer BC | END | disposition home health service (06) | LOC: WOU 11:15 | PROVIDERS: ATTEND Podiatrist Foot & Ankle Surgery | DX: Z48.817 Encounter for surgical aftercare following surgery on the skin and subcutaneous tissue (principal); E11.621 Type 2 diabetes mellitus with foot ulcer; L97.415 Non-pressure chronic ulcer of right heel and midfoot with muscle involvement without evidence of necrosis; L97.512 Non-pressure chronic ulcer of other part of right foot with fat layer exposed; E11.610 Type 2 diabetes mellitus with diabetic neuropathic arthropathy; E11.42 Type 2 diabetes mellitus with diabetic polyneuropathy; E11.69 Type 2 diabetes mellitus with other specified complication; M86.371 Chronic multifocal osteomyelitis, right ankle and foot; D50.9 Iron deficiency anemia, unspecified; Z79.4 Long term (current) use of insulin; Z79.02 Long term (current) use of antithrombotics/antiplatelets | CPT/HCPCS: 97605; A6253 ==

== ENCOUNTER 2019-09-16 11:55 | Outpatient (CLI) | payer BC | END 2019-09-16 23:59 | disposition home health service (06) | LOC: WOU 11:55 | PROVIDERS: ATTEND Podiatrist Foot & Ankle Surgery | DX: E11.621 Type 2 diabetes mellitus with foot ulcer (principal); L97.515 Non-pressure chronic ulcer of other part of right foot with muscle involvement without evidence of necrosis; T81.89XA Other complications of procedures, not elsewhere classified, initial encounter; E11.610 Type 2 diabetes mellitus with diabetic neuropathic arthropathy; E11.42 Type 2 diabetes mellitus with diabetic polyneuropathy; E11.69 Type 2 diabetes mellitus with other specified complication; M86.371 Chronic multifocal osteomyelitis, right ankle and foot; Z79.4 Long term (current) use of insulin; Z79.02 Long term (current) use of antithrombotics/antiplatelets; Z79.899 Other long term (current) drug therapy | CPT/HCPCS: 11042; 11045; 97605-TC ==

== ENCOUNTER 2019-09-19 11:49 | Outpatient (CLI) | payer BC | END 2019-09-19 23:59 | disposition home or self-care (01) | LOC: WOU 11:49 | PROVIDERS: ATTEND Podiatrist Foot & Ankle Surgery | DX: Z48.00 Encounter for change or removal of nonsurgical wound dressing (principal); E11.610 Type 2 diabetes mellitus with diabetic neuropathic arthropathy; E11.69 Type 2 diabetes mellitus with other specified complication; M86.371 Chronic multifocal osteomyelitis, right ankle and foot | CPT/HCPCS: G0463 ==

== ENCOUNTER 2019-09-23 10:42 | Outpatient (CLI) | payer BC | END 2019-09-23 23:59 | disposition home health service (06) | LOC: WOU 10:42 | PROVIDERS: ATTEND Podiatrist Foot & Ankle Surgery | DX: E11.621 Type 2 diabetes mellitus with foot ulcer (principal); L97.512 Non-pressure chronic ulcer of other part of right foot with fat layer exposed; T81.89XD Other complications of procedures, not elsewhere classified, subsequent encounter; E11.610 Type 2 diabetes mellitus with diabetic neuropathic arthropathy; E11.42 Type 2 diabetes mellitus with diabetic polyneuropathy; E11.69 Type 2 diabetes mellitus with other specified complication; M86.371 Chronic multifocal osteomyelitis, right ankle and foot; Z79.4 Long term (current) use of insulin; M25.371 Other instability, right ankle; Z79.02 Long term (current) use of antithrombotics/antiplatelets; R58 Hemorrhage, not elsewhere classified; D50.9 Iron deficiency anemia, unspecified | CPT/HCPCS: 11042; 11045; 82962-TC; 97605-TC ==

== ENCOUNTER 2019-09-26 11:05 | Outpatient (CLI) | payer BC | END 2019-09-26 23:59 | disposition home health service (06) | LOC: WOU 11:05 | PROVIDERS: ATTEND Podiatrist Foot & Ankle Surgery | DX: E11.621 Type 2 diabetes mellitus with foot ulcer (principal); L97.512 Non-pressure chronic ulcer of other part of right foot with fat layer exposed; E11.610 Type 2 diabetes mellitus with diabetic neuropathic arthropathy; E11.42 Type 2 diabetes mellitus with diabetic polyneuropathy; E11.69 Type 2 diabetes mellitus with other specified complication; M86.371 Chronic multifocal osteomyelitis, right ankle and foot; Z79.4 Long term (current) use of insulin; Z79.02 Long term (current) use of antithrombotics/antiplatelets; R58 Hemorrhage, not elsewhere classified | CPT/HCPCS: 11042; 11045; 97605-TC ==

== ENCOUNTER 2019-10-17 10:30 | Outpatient (CLI) | payer BC | END 2019-10-17 23:59 | disposition home or self-care (01) | LOC: WOU 10:30 | PROVIDERS: ATTEND Podiatrist Foot & Ankle Surgery | PROC: 05PYX3Z Removal of Infusion Device from Upper Vein, External Approach (ICD-10-PCS; principal; 2019-10-17) | PROC: 05HC33Z Insertion of Infusion Device into Left Basilic Vein, Percutaneous Approach (ICD-10-PCS; principal; 2019-10-17) | DX: E11.621 Type 2 diabetes mellitus with foot ulcer (principal); L97.512 Non-pressure chronic ulcer of other part of right foot with fat layer exposed; L97.313 Non-pressure chronic ulcer of right ankle with necrosis of muscle; E11.622 Type 2 diabetes mellitus with other skin ulcer; E11.42 Type 2 diabetes mellitus with diabetic polyneuropathy; E11.69 Type 2 diabetes mellitus with other specified complication; M86.371 Chronic multifocal osteomyelitis, right ankle and foot; M84.471 Pathological fracture, right ankle; T82.514A Breakdown (mechanical) of infusion catheter, initial encounter; Z79.4 Long term (current) use of insulin | CPT/HCPCS: 11042; 11043; 37799; 97605; C1751 ==

== ENCOUNTER 2019-10-21 10:35 | Outpatient (CLI) | payer BC | END 2019-10-21 23:59 | disposition home or self-care (01) | LOC: WOU 10:35 | PROVIDERS: ATTEND Podiatrist Foot & Ankle Surgery | DX: E11.622 Type 2 diabetes mellitus with other skin ulcer (principal); E11.621 Type 2 diabetes mellitus with foot ulcer; L97.315 Non-pressure chronic ulcer of right ankle with muscle involvement without evidence of necrosis; L97.512 Non-pressure chronic ulcer of other part of right foot with fat layer exposed; Z79.4 Long term (current) use of insulin; E11.610 Type 2 diabetes mellitus with diabetic neuropathic arthropathy; E11.69 Type 2 diabetes mellitus with other specified complication; M86.371 Chronic multifocal osteomyelitis, right ankle and foot; E11.42 Type 2 diabetes mellitus with diabetic polyneuropathy; D50.9 Iron deficiency anemia, unspecified; Z79.02 Long term (current) use of antithrombotics/antiplatelets; Z79.899 Other long term (current) drug therapy | CPT/HCPCS: 11042; 11043; 97605-TC ==

== ENCOUNTER 2019-10-24 09:05 | Outpatient (CLI) | payer BC | END 2019-10-24 23:59 | disposition home or self-care (01) | LOC: WOU 09:05 | PROVIDERS: ATTEND Podiatrist Foot & Ankle Surgery | DX: E11.621 Type 2 diabetes mellitus with foot ulcer (principal); E11.622 Type 2 diabetes mellitus with other skin ulcer; L97.512 Non-pressure chronic ulcer of other part of right foot with fat layer exposed; L97.313 Non-pressure chronic ulcer of right ankle with necrosis of muscle; L97.811 Non-pressure chronic ulcer of other part of right lower leg limited to breakdown of skin; E11.42 Type 2 diabetes mellitus with diabetic polyneuropathy; D50.9 Iron deficiency anemia, unspecified; E11.69 Type 2 diabetes mellitus with other specified complication; M86.371 Chronic multifocal osteomyelitis, right ankle and foot; Z79.4 Long term (current) use of insulin; Z79.82 Long term (current) use of aspirin | CPT/HCPCS: 11042; 11043; 97605-TC ==

== ENCOUNTER 2019-10-28 09:45 | Outpatient (CLI) | payer BC | END 2019-10-28 23:59 | disposition home or self-care (01) | LOC: WOU 09:45 | PROVIDERS: ATTEND Podiatrist Foot & Ankle Surgery | DX: E11.622 Type 2 diabetes mellitus with other skin ulcer (principal); E11.621 Type 2 diabetes mellitus with foot ulcer; L97.313 Non-pressure chronic ulcer of right ankle with necrosis of muscle; L97.812 Non-pressure chronic ulcer of other part of right lower leg with fat layer exposed; L97.512 Non-pressure chronic ulcer of other part of right foot with fat layer exposed; Z79.4 Long term (current) use of insulin; E11.610 Type 2 diabetes mellitus with diabetic neuropathic arthropathy; E11.42 Type 2 diabetes mellitus with diabetic polyneuropathy; E11.69 Type 2 diabetes mellitus with other specified complication; M86.8X6 Other osteomyelitis, lower leg; R60.0 Localized edema; M96.0 Pseudarthrosis after fusion or arthrodesis; Z79.02 Long term (current) use of antithrombotics/antiplatelets; Z79.899 Other long term (current) drug therapy | CPT/HCPCS: 11042; 97605-TC ==

== ENCOUNTER 2019-10-31 10:30 | Outpatient (CLI) | payer BC | END 2019-10-31 23:59 | disposition home or self-care (01) | LOC: WOU 10:30 | PROVIDERS: ATTEND Podiatrist Foot & Ankle Surgery | DX: E11.621 Type 2 diabetes mellitus with foot ulcer (principal); E11.622 Type 2 diabetes mellitus with other skin ulcer; L97.315 Non-pressure chronic ulcer of right ankle with muscle involvement without evidence of necrosis; L97.912 Non-pressure chronic ulcer of unspecified part of right lower leg with fat layer exposed; L97.512 Non-pressure chronic ulcer of other part of right foot with fat layer exposed; R60.0 Localized edema; E11.610 Type 2 diabetes mellitus with diabetic neuropathic arthropathy; E11.42 Type 2 diabetes mellitus with diabetic polyneuropathy; D50.9 Iron deficiency anemia, unspecified; E11.69 Type 2 diabetes mellitus with other specified complication; M86.371 Chronic multifocal osteomyelitis, right ankle and foot; Z79.4 Long term (current) use of insulin; Z79.02 Long term (current) use of antithrombotics/antiplatelets | CPT/HCPCS: 11042; 97605; A6210 ==

== ENCOUNTER 2019-11-03 11:14 | Outpatient (CLI) | payer BC | END 2019-11-03 23:59 | disposition home or self-care (01) | LOC: LAB 11:14 | PROVIDERS: ATTEND Podiatrist Foot & Ankle Surgery | DX: Z75.3 Unavailability and inaccessibility of health-care facilities (principal) ==

== ENCOUNTER 2019-11-04 10:30 | Outpatient (CLI) | payer BC | END 2019-11-04 23:59 | disposition home or self-care (01) | LOC: WOU 10:30 | PROVIDERS: ATTEND Podiatrist Foot & Ankle Surgery | DX: E11.621 Type 2 diabetes mellitus with foot ulcer (principal); L97.312 Non-pressure chronic ulcer of right ankle with fat layer exposed; L97.512 Non-pressure chronic ulcer of other part of right foot with fat layer exposed; L97.812 Non-pressure chronic ulcer of other part of right lower leg with fat layer exposed; E11.610 Type 2 diabetes mellitus with diabetic neuropathic arthropathy; E11.42 Type 2 diabetes mellitus with diabetic polyneuropathy; E11.69 Type 2 diabetes mellitus with other specified complication; M86.371 Chronic multifocal osteomyelitis, right ankle and foot; Z79.4 Long term (current) use of insulin; Z79.02 Long term (current) use of antithrombotics/antiplatelets | CPT/HCPCS: 11042 ==

== ENCOUNTER 2019-11-10 11:00 | Outpatient (CLI) | payer BC | END 2019-11-10 23:59 | disposition home or self-care (01) | LOC: MRI 11:00 | PROVIDERS: ATTEND Podiatrist Foot & Ankle Surgery | DX: S93.04XA Dislocation of right ankle joint, initial encounter (principal); M76.821 Posterior tibial tendinitis, right leg; M14.671 Charcot's joint, right ankle and foot; M86.8X6 Other osteomyelitis, lower leg; M65.871 Other synovitis and tenosynovitis, right ankle and foot; M84.471A Pathological fracture, right ankle, initial encounter for fracture; X58.XXXA Exposure to other specified factors, initial encounter; Y93.89 Activity, other specified; Y92.89 Other specified places as the place of occurrence of the external cause; Y99.8 Other external cause status | CPT/HCPCS: 73718-TC; 73721-TC ==

== ENCOUNTER 2019-11-11 11:07 | Outpatient (CLI) | payer BC | END 2019-11-11 23:59 | disposition home or self-care (01) | LOC: WOU 11:07 | PROVIDERS: ATTEND Podiatrist Foot & Ankle Surgery | DX: E11.622 Type 2 diabetes mellitus with other skin ulcer (principal); L97.312 Non-pressure chronic ulcer of right ankle with fat layer exposed; E11.621 Type 2 diabetes mellitus with foot ulcer; L97.512 Non-pressure chronic ulcer of other part of right foot with fat layer exposed; E11.42 Type 2 diabetes mellitus with diabetic polyneuropathy; E11.610 Type 2 diabetes mellitus with diabetic neuropathic arthropathy; Z79.4 Long term (current) use of insulin; M21.171 Varus deformity, not elsewhere classified, right ankle; Z79.02 Long term (current) use of antithrombotics/antiplatelets | CPT/HCPCS: 11042; A6210 ==

== ENCOUNTER 2019-11-18 08:20 | Outpatient (CLI) | payer BC | END 2019-11-18 23:59 | disposition home or self-care (01) | LOC: WOU 08:20 | PROVIDERS: ATTEND Podiatrist Foot & Ankle Surgery | DX: E11.621 Type 2 diabetes mellitus with foot ulcer (principal); E11.622 Type 2 diabetes mellitus with other skin ulcer; L97.512 Non-pressure chronic ulcer of other part of right foot with fat layer exposed; L97.312 Non-pressure chronic ulcer of right ankle with fat layer exposed; Z79.4 Long term (current) use of insulin; E11.610 Type 2 diabetes mellitus with diabetic neuropathic arthropathy; E11.42 Type 2 diabetes mellitus with diabetic polyneuropathy; E11.69 Type 2 diabetes mellitus with other specified complication; M86.371 Chronic multifocal osteomyelitis, right ankle and foot; I10 Essential (primary) hypertension; Z86.73 Personal history of transient ischemic attack (TIA), and cerebral infarction without residual deficits | CPT/HCPCS: 11042 ==

== ENCOUNTER 2019-11-25 10:00 | Outpatient (CLI) | payer BC | END 2019-11-25 23:59 | disposition home or self-care (01) | LOC: WOU 10:00 | PROVIDERS: ATTEND Podiatrist Foot & Ankle Surgery | DX: E11.622 Type 2 diabetes mellitus with other skin ulcer (principal); E11.621 Type 2 diabetes mellitus with foot ulcer; L97.312 Non-pressure chronic ulcer of right ankle with fat layer exposed; L97.512 Non-pressure chronic ulcer of other part of right foot with fat layer exposed; E11.610 Type 2 diabetes mellitus with diabetic neuropathic arthropathy; E11.69 Type 2 diabetes mellitus with other specified complication; M86.371 Chronic multifocal osteomyelitis, right ankle and foot; Z79.4 Long term (current) use of insulin; Z79.02 Long term (current) use of antithrombotics/antiplatelets; Z79.899 Other long term (current) drug therapy | CPT/HCPCS: 17250; 36415; 85652-TC; 86140-TC ==

== ENCOUNTER 2019-11-28 10:55 | Outpatient (CLI) | payer BC | END 2019-11-28 23:59 | disposition home or self-care (01) | LOC: WOU 10:55 | PROVIDERS: ATTEND Podiatrist Foot & Ankle Surgery | DX: E11.621 Type 2 diabetes mellitus with foot ulcer (principal); E11.622 Type 2 diabetes mellitus with other skin ulcer; L97.512 Non-pressure chronic ulcer of other part of right foot with fat layer exposed; L97.312 Non-pressure chronic ulcer of right ankle with fat layer exposed; E11.42 Type 2 diabetes mellitus with diabetic polyneuropathy; Z83.3 Family history of diabetes mellitus; E11.610 Type 2 diabetes mellitus with diabetic neuropathic arthropathy; D50.9 Iron deficiency anemia, unspecified; E11.69 Type 2 diabetes mellitus with other specified complication; M86.371 Chronic multifocal osteomyelitis, right ankle and foot; Z79.4 Long term (current) use of insulin; Z79.82 Long term (current) use of aspirin | CPT/HCPCS: 11042 ==

== ENCOUNTER 2019-12-02 10:55 | Outpatient (CLI) | payer BC | END 2019-12-02 23:59 | disposition home health service (06) | LOC: WOU 10:55 | PROVIDERS: ATTEND Podiatrist Foot & Ankle Surgery | DX: E11.622 Type 2 diabetes mellitus with other skin ulcer (principal); E11.621 Type 2 diabetes mellitus with foot ulcer; L97.312 Non-pressure chronic ulcer of right ankle with fat layer exposed; L97.512 Non-pressure chronic ulcer of other part of right foot with fat layer exposed; E11.610 Type 2 diabetes mellitus with diabetic neuropathic arthropathy; E11.42 Type 2 diabetes mellitus with diabetic polyneuropathy; E11.69 Type 2 diabetes mellitus with other specified complication; M86.371 Chronic multifocal osteomyelitis, right ankle and foot; Z79.4 Long term (current) use of insulin; S80.821A Blister (nonthermal), right lower leg, initial encounter; X58.XXXA Exposure to other specified factors, initial encounter; Y92.89 Other specified places as the place of occurrence of the external cause | CPT/HCPCS: 17250 ==

== ENCOUNTER 2019-12-03 09:13 | Outpatient (CLI) | payer BC | END 2019-12-03 23:59 | disposition home health service (06) | LOC: WOU 09:13 | PROVIDERS: ATTEND Specialist | DX: E11.610 Type 2 diabetes mellitus with diabetic neuropathic arthropathy (principal); E11.621 Type 2 diabetes mellitus with foot ulcer; L97.412 Non-pressure chronic ulcer of right heel and midfoot with fat layer exposed; L97.312 Non-pressure chronic ulcer of right ankle with fat layer exposed; E11.622 Type 2 diabetes mellitus with other skin ulcer; S80.821D Blister (nonthermal), right lower leg, subsequent encounter; X58.XXXD Exposure to other specified factors, subsequent encounter; E11.42 Type 2 diabetes mellitus with diabetic polyneuropathy; E11.69 Type 2 diabetes mellitus with other specified complication; M86.371 Chronic multifocal osteomyelitis, right ankle and foot; E50.9 Vitamin A deficiency, unspecified; Z86.73 Personal history of transient ischemic attack (TIA), and cerebral infarction without residual deficits; Z87.19 Personal history of other diseases of the digestive system; Z79.4 Long term (current) use of insulin; Z79.82 Long term (current) use of aspirin | CPT/HCPCS: 99214; A6209; G0463 ==

== ENCOUNTER 2019-12-12 11:00 | Outpatient (CLI) | payer BC | END 2019-12-12 23:59 | disposition home health service (06) | LOC: WOU 11:00 | PROVIDERS: ATTEND Podiatrist Foot & Ankle Surgery | DX: E11.610 Type 2 diabetes mellitus with diabetic neuropathic arthropathy (principal); E11.42 Type 2 diabetes mellitus with diabetic polyneuropathy; D50.9 Iron deficiency anemia, unspecified; M25.371 Other instability, right ankle; M86.371 Chronic multifocal osteomyelitis, right ankle and foot; Z79.4 Long term (current) use of insulin; Z79.02 Long term (current) use of antithrombotics/antiplatelets | CPT/HCPCS: G0463 ==

== ENCOUNTER 2020-01-05 12:33 | Outpatient (CLI) | payer BC ==
[2020-01-05 13:58] LABS: BASOPHILS % (AUTO) 0.4 % (0.0-2.0); EOSINOPHILS % (AUTO) 4.2 % (0.0-6.0); HEMATOCRIT 31 % (33-45); HEMOGLOBIN 10.5 g/dL (11.5-14.8); LYMPHOCYTES # (AUTO) 2.1 /CMM (0.8-4.8); LYMPHOCYTES % (AUTO) 29.1 % (20.0-44.0); MEAN CORPUSCULAR HGB CONC 33 g/dl (31.0-36.0); MEAN CORPUSCULAR VOLUME 90 fL (82-100); MONOCYTES # (AUTO) 0.5 /CMM (0.1-1.30); MONOCYTES % (AUTO) 7.6 % (2.0-12.0); NEUTROPHILS # (AUTO) 4.1 /CMM (1.8-8.9); NEUTROPHILS % (AUTO) 58.7 % (43.0-81.0); PLATELET COUNT (AUTO) 242 /CMM (150-450); RED BLOOD CELL COUNT(AUTO) 3.48 MIL/uL (4.0-5.2); WHITE BLOOD COUNT (AUTO) 7.1 K/uL (4.3-11.0)
[2020-01-05 14:23] LABS: ALANINE AMINOTRANSFERASE 31 U/L (12-78); ALBUMIN 3.9 g/dL (3.4-5.0); ALKALINE PHOSPHATASE 64 U/L (46-116); ASPARTATE AMINOTRANSFERASE 20 U/L (15-37); BILIRUBIN,TOTAL 0.3 mg/dL (0.2-1.0); CALCIUM, SERUM 9.2 mg/dL (8.5-10.1); CARBON DIOXIDE 27 mmol/L (21-32); CHLORIDE 105 mmol/L (98-107); CREATININE 2.3 mg/dL (0.6-1.3); GLUCOSE 157 mg/dL (74-106); POTASSIUM 4.1 mmol/L (3.5-5.1); SODIUM SERUM 143 mmol/L (136-145); TOTAL PROTEIN, SERUM 7.1 g/dL (6.4-8.2); UREA NITROGEN, BLOOD 52 mg/dL (7-18)
[2020-01-05 14:36] LABS: THYROID STIMULATING HORMONE 2.936 uIU/mL (0.358-3.74)
[2020-01-05 14:39] LABS: C-REACTIVE PROTEIN < 0.2 mg/dL (0.0-0.9)
[2020-01-07 13:10] LABS: CALCIUM RNDM,URINE 2.9 mg/dL (2.0-17.5)
== END 2020-01-05 23:59 | disposition home or self-care (01) ==
LOC: LAB 12:33
PROVIDERS: ATTEND Podiatrist Foot & Ankle Surgery
DX: E11.610 Type 2 diabetes mellitus with diabetic neuropathic arthropathy (principal); M19.90 Unspecified osteoarthritis, unspecified site
CPT/HCPCS: 36415; 80053-TC; 82306; 83970; 84134-TC; 84443-TC; 85025-TC; 85652-TC; 86140-TC

== ENCOUNTER 2020-01-09 11:00 | Outpatient (CLI) | payer BC | END 2020-01-09 23:59 | disposition home or self-care (01) | LOC: WOU 11:00 | PROVIDERS: ATTEND Podiatrist Foot & Ankle Surgery | DX: Z09 Encounter for follow-up examination after completed treatment for conditions other than malignant neoplasm (principal); Z86.31 Personal history of diabetic foot ulcer; E11.610 Type 2 diabetes mellitus with diabetic neuropathic arthropathy; E11.42 Type 2 diabetes mellitus with diabetic polyneuropathy; Z79.4 Long term (current) use of insulin; R60.0 Localized edema; M96.0 Pseudarthrosis after fusion or arthrodesis; Z79.02 Long term (current) use of antithrombotics/antiplatelets | CPT/HCPCS: G0463 ==

== ENCOUNTER 2020-02-09 12:47 | Outpatient (CLI) | payer BC ==
[2020-02-09 13:41] LABS: BASOPHILS % (AUTO) 0.4 % (0.0-2.0); EOSINOPHILS % (AUTO) 3.9 % (0.0-6.0); HEMATOCRIT 30 % (33-45); HEMOGLOBIN 10.2 g/dL (11.5-14.8); LYMPHOCYTES # (AUTO) 1.8 /CMM (0.8-4.8); LYMPHOCYTES % (AUTO) 30.5 % (20.0-44.0); MEAN CORPUSCULAR HGB CONC 34 g/dl (31.0-36.0); MEAN CORPUSCULAR VOLUME 92 fL (82-100); MONOCYTES # (AUTO) 0.4 /CMM (0.1-1.30); MONOCYTES % (AUTO) 6.4 % (2.0-12.0); NEUTROPHILS # (AUTO) 3.5 /CMM (1.8-8.9); NEUTROPHILS % (AUTO) 58.8 % (43.0-81.0); PLATELET COUNT (AUTO) 181 /CMM (150-450); RED BLOOD CELL COUNT(AUTO) 3.31 MIL/uL (4.0-5.2)
[2020-02-09 15:00] LABS: C-REACTIVE PROTEIN 0.6 mg/dL (0.0-0.9)
[2020-02-09 15:05] LABS: PREALBUMIN 43.4 MG/DL (18.0-35.7)
== END 2020-02-09 23:59 | disposition home or self-care (01) ==
LOC: LAB 12:47
PROVIDERS: ATTEND Podiatrist Foot & Ankle Surgery
DX: E11.610 Type 2 diabetes mellitus with diabetic neuropathic arthropathy (principal); Z87.39 Personal history of other diseases of the musculoskeletal system and connective tissue
CPT/HCPCS: 36415; 84134-TC; 85025-TC; 85652-TC; 86140-TC

== ENCOUNTER 2020-02-18 13:05 | Outpatient (CLI) | payer BC ==
[~2020-02-18 13:05] MED LIST changes: +ONDANSETRON HCL/PF 4 MG/2 ML VIAL ONE
== END 2020-02-18 23:59 | disposition home or self-care (01) ==
LOC: WOU 13:05
PROVIDERS: ATTEND Podiatrist Foot & Ankle Surgery
DX: E11.610 Type 2 diabetes mellitus with diabetic neuropathic arthropathy (principal); E11.42 Type 2 diabetes mellitus with diabetic polyneuropathy; E11.69 Type 2 diabetes mellitus with other specified complication; M86.371 Chronic multifocal osteomyelitis, right ankle and foot; M25.371 Other instability, right ankle; Z79.4 Long term (current) use of insulin; Z79.02 Long term (current) use of antithrombotics/antiplatelets; Z79.899 Other long term (current) drug therapy
CPT/HCPCS: G0463; J2405

== ENCOUNTER 2020-03-26 10:55 | Outpatient (CLI) | payer BC ==
[~2020-03-26 10:55] MED LIST changes: -ONDANSETRON HCL/PF 4 MG/2 ML VIAL ONE
== END 2020-03-26 23:59 | disposition home or self-care (01) ==
LOC: WOU 10:55
PROVIDERS: ATTEND Podiatrist Foot & Ankle Surgery
DX: E11.610 Type 2 diabetes mellitus with diabetic neuropathic arthropathy (principal); E11.42 Type 2 diabetes mellitus with diabetic polyneuropathy; E11.69 Type 2 diabetes mellitus with other specified complication; M86.371 Chronic multifocal osteomyelitis, right ankle and foot; M25.371 Other instability, right ankle; Z79.4 Long term (current) use of insulin; D50.9 Iron deficiency anemia, unspecified; Z79.02 Long term (current) use of antithrombotics/antiplatelets; Z79.899 Other long term (current) drug therapy

== ENCOUNTER 2020-04-14 13:00 | Outpatient (CLI) | payer BC | END 2020-04-14 23:59 | disposition home or self-care (01) | LOC: WOU 13:00 | PROVIDERS: ATTEND Podiatrist Foot & Ankle Surgery | DX: E11.610 Type 2 diabetes mellitus with diabetic neuropathic arthropathy (principal); E11.42 Type 2 diabetes mellitus with diabetic polyneuropathy; D50.9 Iron deficiency anemia, unspecified; E11.69 Type 2 diabetes mellitus with other specified complication; M86.371 Chronic multifocal osteomyelitis, right ankle and foot; M25.371 Other instability, right ankle; Z79.4 Long term (current) use of insulin; Z79.02 Long term (current) use of antithrombotics/antiplatelets | CPT/HCPCS: G0463 ==

== ENCOUNTER 2020-04-23 08:05 | Outpatient (CLI) | payer BC ==
[~2020-04-23 08:05] MED LIST changes: -PANT40TA4 PO; +PANT40TA49 PO
== END 2020-04-23 23:59 | disposition home or self-care (01) ==
LOC: WOU 08:05
PROVIDERS: ATTEND Podiatrist Foot & Ankle Surgery
DX: E11.622 Type 2 diabetes mellitus with other skin ulcer (principal); L97.312 Non-pressure chronic ulcer of right ankle with fat layer exposed; M25.371 Other instability, right ankle; E11.610 Type 2 diabetes mellitus with diabetic neuropathic arthropathy; E11.42 Type 2 diabetes mellitus with diabetic polyneuropathy; E11.69 Type 2 diabetes mellitus with other specified complication; M86.371 Chronic multifocal osteomyelitis, right ankle and foot; Z79.4 Long term (current) use of insulin; Z79.02 Long term (current) use of antithrombotics/antiplatelets; M21.70 Unequal limb length (acquired), unspecified site
CPT/HCPCS: 99213; A6209; G0463

== ENCOUNTER 2020-04-30 14:30 | Outpatient (CLI) | payer BC ==
[~2020-04-30 14:30] MED LIST changes: +PANT40TA4 PO; -PANT40TA49 PO
== END 2020-04-30 23:59 | disposition home or self-care (01) ==
LOC: WOU 14:30
PROVIDERS: ATTEND Podiatrist Foot & Ankle Surgery
DX: E11.610 Type 2 diabetes mellitus with diabetic neuropathic arthropathy (principal); E11.42 Type 2 diabetes mellitus with diabetic polyneuropathy; Z79.4 Long term (current) use of insulin; M25.371 Other instability, right ankle; D50.9 Iron deficiency anemia, unspecified; I10 Essential (primary) hypertension
CPT/HCPCS: G0463

== ENCOUNTER 2020-05-14 11:00 | Outpatient (CLI) | payer BC ==
[2020-05-14] MEDS ORDERED: CLOTRIMAZOLE 1% 15 GM TUBE TP ONE (11:51)
[2020-05-14] MEDS ORDERED: TRIAMCINOLONE ACETONIDE 0.1% CR 15 GM TUBE TP ONE (11:51)
== END 2020-05-14 23:59 | disposition home or self-care (01) ==
LOC: WOU 11:00
PROVIDERS: ATTEND Podiatrist Foot & Ankle Surgery
DX: E11.610 Type 2 diabetes mellitus with diabetic neuropathic arthropathy (principal); E11.42 Type 2 diabetes mellitus with diabetic polyneuropathy; E11.69 Type 2 diabetes mellitus with other specified complication; M86.371 Chronic multifocal osteomyelitis, right ankle and foot; Z79.4 Long term (current) use of insulin; D50.9 Iron deficiency anemia, unspecified; M25.371 Other instability, right ankle; Z79.02 Long term (current) use of antithrombotics/antiplatelets
CPT/HCPCS: G0463

== ENCOUNTER 2020-06-25 11:00 | Outpatient (CLI) | payer BC ==
[~2020-06-25 11:00] MED LIST changes: -PANT40TA4 PO; +PANT40TA49 PO
== END 2020-06-25 23:59 | disposition home or self-care (01) ==
LOC: WOU 11:00
PROVIDERS: ATTEND Podiatrist Foot & Ankle Surgery
DX: E11.610 Type 2 diabetes mellitus with diabetic neuropathic arthropathy (principal); E11.42 Type 2 diabetes mellitus with diabetic polyneuropathy; E11.69 Type 2 diabetes mellitus with other specified complication; M86.371 Chronic multifocal osteomyelitis, right ankle and foot; Z79.4 Long term (current) use of insulin; D50.9 Iron deficiency anemia, unspecified; Z79.02 Long term (current) use of antithrombotics/antiplatelets
CPT/HCPCS: 87070-TC

== ENCOUNTER 2020-07-30 10:55 | Outpatient (CLI) | payer BC | END 2020-07-30 23:59 | disposition home or self-care (01) | LOC: WOU 10:55 | PROVIDERS: ATTEND Podiatrist Foot & Ankle Surgery | DX: E11.610 Type 2 diabetes mellitus with diabetic neuropathic arthropathy (principal); E11.42 Type 2 diabetes mellitus with diabetic polyneuropathy; Z79.4 Long term (current) use of insulin; Z79.02 Long term (current) use of antithrombotics/antiplatelets; M25.371 Other instability, right ankle | CPT/HCPCS: 73600-TC; 73630-TC; G0463 ==

== ENCOUNTER 2020-09-10 11:00 | Outpatient (CLI) | payer BC ==
[~2020-09-10 11:00] MED LIST changes: +AMLO-213 PO; -AMLO10TA7 PO
== END 2020-09-10 23:59 | disposition home or self-care (01) ==
LOC: WOU 11:00
PROVIDERS: ATTEND Podiatrist Foot & Ankle Surgery
DX: E11.610 Type 2 diabetes mellitus with diabetic neuropathic arthropathy (principal); E11.42 Type 2 diabetes mellitus with diabetic polyneuropathy; Z79.4 Long term (current) use of insulin; B35.1 Tinea unguium; M25.371 Other instability, right ankle; Z79.02 Long term (current) use of antithrombotics/antiplatelets
CPT/HCPCS: G0463

== ENCOUNTER 2021-02-04 13:31 | Outpatient (CLI) | payer BC ==
[~2021-02-04 13:31] MED LIST changes: -LISI-603 PO; +LISI20TA30 PO
== END 2021-02-04 23:59 | disposition home or self-care (01) ==
LOC: RAD 13:31
PROVIDERS: ATTEND Podiatrist Foot & Ankle Surgery
DX: M19.071 Primary osteoarthritis, right ankle and foot (principal); A52.16 Charcot's arthropathy (tabetic); M20.31 Hallux varus (acquired), right foot; M21.071 Valgus deformity, not elsewhere classified, right ankle
CPT/HCPCS: 73600-TC; 73630-TC

== ENCOUNTER 2021-02-09 13:00 | Outpatient (CLI) | payer BC | END 2021-02-09 23:59 | disposition home or self-care (01) | LOC: WOU 13:00 | PROVIDERS: ATTEND Podiatrist Foot & Ankle Surgery | DX: E11.621 Type 2 diabetes mellitus with foot ulcer (principal); L97.412 Non-pressure chronic ulcer of right heel and midfoot with fat layer exposed; E11.610 Type 2 diabetes mellitus with diabetic neuropathic arthropathy; Z79.4 Long term (current) use of insulin; L84 Corns and callosities; B35.1 Tinea unguium; L25.9 Unspecified contact dermatitis, unspecified cause; Z79.02 Long term (current) use of antithrombotics/antiplatelets | CPT/HCPCS: 11042 ==

== ENCOUNTER → 2021-03-02 | Outpatient (CLI) | payer BC | END | disposition home health service (06) | LOC: WOU 13:30 | PROVIDERS: ATTEND Podiatrist Foot & Ankle Surgery | DX: E11.622 Type 2 diabetes mellitus with other skin ulcer (principal); L97.312 Non-pressure chronic ulcer of right ankle with fat layer exposed; E11.621 Type 2 diabetes mellitus with foot ulcer; L97.412 Non-pressure chronic ulcer of right heel and midfoot with fat layer exposed; E11.610 Type 2 diabetes mellitus with diabetic neuropathic arthropathy; T81.89XD Other complications of procedures, not elsewhere classified, subsequent encounter; E11.69 Type 2 diabetes mellitus with other specified complication; M86.9 Osteomyelitis, unspecified; Z79.4 Long term (current) use of insulin; L84 Corns and callosities; B35.1 Tinea unguium; L25.9 Unspecified contact dermatitis, unspecified cause; Z79.02 Long term (current) use of antithrombotics/antiplatelets | CPT/HCPCS: 11042; A6209; G0463 ==

== ENCOUNTER 2021-03-09 12:55 | Outpatient (CLI) | payer BC | END 2021-03-09 23:59 | disposition home health service (06) | LOC: WOU 12:55 | PROVIDERS: ATTEND Podiatrist Foot & Ankle Surgery | DX: E11.622 Type 2 diabetes mellitus with other skin ulcer (principal); L97.312 Non-pressure chronic ulcer of right ankle with fat layer exposed; E11.621 Type 2 diabetes mellitus with foot ulcer; L97.512 Non-pressure chronic ulcer of other part of right foot with fat layer exposed; Z79.4 Long term (current) use of insulin; L89.619 Pressure ulcer of right heel, unspecified stage; T81.89XD Other complications of procedures, not elsewhere classified, subsequent encounter; E11.610 Type 2 diabetes mellitus with diabetic neuropathic arthropathy; E11.69 Type 2 diabetes mellitus with other specified complication; M86.9 Osteomyelitis, unspecified; L84 Corns and callosities; B35.1 Tinea unguium; L25.9 Unspecified contact dermatitis, unspecified cause; Z79.02 Long term (current) use of antithrombotics/antiplatelets | CPT/HCPCS: 11042; 97597; A6209 ==

== ENCOUNTER 2021-03-14 08:57 | Outpatient (CLI) | payer BC | END 2021-03-14 23:59 | disposition home or self-care (01) | LOC: CT 08:57 | PROVIDERS: ATTEND Podiatrist Foot & Ankle Surgery | DX: M85.871 Other specified disorders of bone density and structure, right ankle and foot (principal); M86.8X7 Other osteomyelitis, ankle and foot; M79.89 Other specified soft tissue disorders | CPT/HCPCS: 73700-TC ==

== ENCOUNTER 2021-03-16 13:15 | Outpatient (CLI) | payer BC | END 2021-03-16 23:59 | disposition home health service (06) | LOC: WOU 13:15 | PROVIDERS: ATTEND Podiatrist Foot & Ankle Surgery | DX: E11.622 Type 2 diabetes mellitus with other skin ulcer (principal); L97.312 Non-pressure chronic ulcer of right ankle with fat layer exposed; E11.621 Type 2 diabetes mellitus with foot ulcer; L97.412 Non-pressure chronic ulcer of right heel and midfoot with fat layer exposed; E11.610 Type 2 diabetes mellitus with diabetic neuropathic arthropathy; L25.9 Unspecified contact dermatitis, unspecified cause; L84 Corns and callosities; B35.1 Tinea unguium; Z79.4 Long term (current) use of insulin; Z79.02 Long term (current) use of antithrombotics/antiplatelets | CPT/HCPCS: 11042; A6209 ==

== ENCOUNTER 2021-03-23 13:15 | Outpatient (CLI) | payer BC | END 2021-03-23 23:59 | disposition home or self-care (01) | LOC: WOU 13:15 | PROVIDERS: ATTEND Specialist | DX: E11.610 Type 2 diabetes mellitus with diabetic neuropathic arthropathy (principal); E11.69 Type 2 diabetes mellitus with other specified complication; M86.671 Other chronic osteomyelitis, right ankle and foot; E11.622 Type 2 diabetes mellitus with other skin ulcer; L97.312 Non-pressure chronic ulcer of right ankle with fat layer exposed; L89.619 Pressure ulcer of right heel, unspecified stage; T81.89XD Other complications of procedures, not elsewhere classified, subsequent encounter; Z79.4 Long term (current) use of insulin; Z79.02 Long term (current) use of antithrombotics/antiplatelets | CPT/HCPCS: 99214; A6209; G0463 ==

== ENCOUNTER 2021-04-01 11:00 | Outpatient (CLI) | payer BC | END 2021-04-01 23:59 | disposition home health service (06) | LOC: WOU 11:00 | PROVIDERS: ATTEND Podiatrist Foot & Ankle Surgery | DX: E11.622 Type 2 diabetes mellitus with other skin ulcer (principal); L97.312 Non-pressure chronic ulcer of right ankle with fat layer exposed; L89.614 Pressure ulcer of right heel, stage 4; T81.89XD Other complications of procedures, not elsewhere classified, subsequent encounter; E11.610 Type 2 diabetes mellitus with diabetic neuropathic arthropathy; E11.69 Type 2 diabetes mellitus with other specified complication; M86.671 Other chronic osteomyelitis, right ankle and foot; Z79.4 Long term (current) use of insulin; L84 Corns and callosities; B35.1 Tinea unguium; L25.9 Unspecified contact dermatitis, unspecified cause; Z79.02 Long term (current) use of antithrombotics/antiplatelets | CPT/HCPCS: 11042; 11043; A6209 ==

== ENCOUNTER 2021-04-08 11:20 | Outpatient (CLI) | payer BC | END 2021-04-08 23:59 | disposition home health service (06) | LOC: WOU 11:20 | PROVIDERS: ATTEND Podiatrist Foot & Ankle Surgery | DX: E11.621 Type 2 diabetes mellitus with foot ulcer (principal); L97.515 Non-pressure chronic ulcer of other part of right foot with muscle involvement without evidence of necrosis; E11.622 Type 2 diabetes mellitus with other skin ulcer; L97.315 Non-pressure chronic ulcer of right ankle with muscle involvement without evidence of necrosis; E11.610 Type 2 diabetes mellitus with diabetic neuropathic arthropathy; E11.69 Type 2 diabetes mellitus with other specified complication; M86.671 Other chronic osteomyelitis, right ankle and foot; Z79.4 Long term (current) use of insulin; L89.614 Pressure ulcer of right heel, stage 4; T81.89XD Other complications of procedures, not elsewhere classified, subsequent encounter; L84 Corns and callosities | CPT/HCPCS: 11043; A6209 ==

== ENCOUNTER 2021-04-15 11:07 | Outpatient (CLI) | payer BC | END 2021-04-15 23:59 | disposition home health service (06) | LOC: WOU 11:07 | PROVIDERS: ATTEND Podiatrist Foot & Ankle Surgery | DX: E11.621 Type 2 diabetes mellitus with foot ulcer (principal); L97.512 Non-pressure chronic ulcer of other part of right foot with fat layer exposed; E11.622 Type 2 diabetes mellitus with other skin ulcer; L97.312 Non-pressure chronic ulcer of right ankle with fat layer exposed; L89.614 Pressure ulcer of right heel, stage 4; E11.610 Type 2 diabetes mellitus with diabetic neuropathic arthropathy; E11.69 Type 2 diabetes mellitus with other specified complication; M86.671 Other chronic osteomyelitis, right ankle and foot; Z79.4 Long term (current) use of insulin; Z79.02 Long term (current) use of antithrombotics/antiplatelets | CPT/HCPCS: 11042; 11045; A6209 ==

== ENCOUNTER 2021-04-21 11:20 | Outpatient (CLI) | payer BC ==
[2021-04-21 12:58] LABS: BASOPHILS % (AUTO) 0.3 % (0.0-2.0); HEMATOCRIT 29 % (33-45); HEMOGLOBIN 9.7 g/dL (11.5-14.8); LYMPHOCYTES # (AUTO) 1.7 K/uL (0.8-4.8); LYMPHOCYTES % (AUTO) 30.4 % (20.0-44.0); MEAN CORPUSCULAR HGB CONC 34 g/dl (31.0-36.0); MEAN CORPUSCULAR VOLUME 90 fL (82-100); MONOCYTES # (AUTO) 0.4 K/uL (0.1-1.30); MONOCYTES % (AUTO) 7.3 % (2.0-12.0); NEUTROPHILS # (AUTO) 3.2 K/uL (1.8-8.9); PLATELET COUNT (AUTO) 168 K/uL (150-450); WHITE BLOOD COUNT (AUTO) 5.6 K/uL (4.3-11.0)
[2021-04-21 13:36] LABS: ALBUMIN 3.9 g/dL (3.4-5.0); BILIRUBIN,TOTAL 0.4 mg/dL (0.2-1.0); CALCIUM, SERUM 9.5 mg/dL (8.5-10.1); CREATININE 2.6 mg/dL (0.6-1.3); MAGNESIUM 1.8 mg/dL (1.8-2.4); POTASSIUM 3.8 mmol/L (3.5-5.1); TOTAL PROTEIN, SERUM 7.2 g/dL (6.4-8.2)
== END 2021-04-21 23:59 | disposition home or self-care (01) ==
LOC: LAB 11:20
DX: I12.9 Hypertensive chronic kidney disease with stage 1 through stage 4 chronic kidney disease, or unspecified chronic kidney disease (principal); E11.22 Type 2 diabetes mellitus with diabetic chronic kidney disease; D63.1 Anemia in chronic kidney disease; N18.4 Chronic kidney disease, stage 4 (severe); M14.679 Charcot's joint, unspecified ankle and foot
CPT/HCPCS: 36415; 80053-TC; 83735-TC; 83970; 85025-TC

== ENCOUNTER 2021-04-22 11:00 | Outpatient (CLI) | payer BC | END 2021-04-22 23:59 | disposition home health service (06) | LOC: WOU 11:00 | PROVIDERS: ATTEND Podiatrist Foot & Ankle Surgery | DX: E11.622 Type 2 diabetes mellitus with other skin ulcer (principal); L97.312 Non-pressure chronic ulcer of right ankle with fat layer exposed; E11.621 Type 2 diabetes mellitus with foot ulcer; L97.512 Non-pressure chronic ulcer of other part of right foot with fat layer exposed; L89.614 Pressure ulcer of right heel, stage 4; E11.610 Type 2 diabetes mellitus with diabetic neuropathic arthropathy; L84 Corns and callosities; B35.1 Tinea unguium; L25.9 Unspecified contact dermatitis, unspecified cause; Z99.3 Dependence on wheelchair; Z79.4 Long term (current) use of insulin; Z79.02 Long term (current) use of antithrombotics/antiplatelets | CPT/HCPCS: 11042; 11043; A6209 ==

== ENCOUNTER 2021-04-22 11:10 | Outpatient (CLI) | payer BC ==
[2021-04-22 13:14] LABS: BILIRUBIN,URINE NEGATIVE (NEGATIVE); LEUKOCYTE ESTERASE ,URINE NEGATIVE (NEGATIVE); NITRITE, URINE NEGATIVE (NEGATIVE); PROTEIN,URINE NEGATIVE (NEGATIVE); UGLUCOSE NEGATIVE (NEGATIVE); UROBILINOGEN,URINE 0.2 EU/dL (0.2)
[2021-04-22 13:15] LABS: COLOR,URINE STRAW (YELLOW)
== END 2021-04-22 23:59 | disposition home or self-care (01) ==
LOC: LAB 11:10
PROVIDERS: ATTEND Internal Medicine
DX: I12.9 Hypertensive chronic kidney disease with stage 1 through stage 4 chronic kidney disease, or unspecified chronic kidney disease (principal); E11.22 Type 2 diabetes mellitus with diabetic chronic kidney disease; D63.1 Anemia in chronic kidney disease; N18.4 Chronic kidney disease, stage 4 (severe); M14.679 Charcot's joint, unspecified ankle and foot
CPT/HCPCS: 36415; 84155-TC

== ENCOUNTER 2021-05-18 11:15 | Outpatient (CLI) | payer BC | END 2021-05-18 23:59 | disposition home health service (06) | LOC: WOU 11:15 | PROVIDERS: ATTEND Specialist | DX: E11.69 Type 2 diabetes mellitus with other specified complication (principal); M86.671 Other chronic osteomyelitis, right ankle and foot; E11.621 Type 2 diabetes mellitus with foot ulcer; L97.512 Non-pressure chronic ulcer of other part of right foot with fat layer exposed; L97.312 Non-pressure chronic ulcer of right ankle with fat layer exposed; L89.614 Pressure ulcer of right heel, stage 4; E78.5 Hyperlipidemia, unspecified; E11.42 Type 2 diabetes mellitus with diabetic polyneuropathy; E11.610 Type 2 diabetes mellitus with diabetic neuropathic arthropathy; Z86.16 Personal history of COVID-19; Z83.3 Family history of diabetes mellitus; Z82.49 Family history of ischemic heart disease and other diseases of the circulatory system; Z82.0 Family history of epilepsy and other diseases of the nervous system; Z98.49 Cataract extraction status, unspecified eye; B35.1 Tinea unguium; M25.371 Other instability, right ankle; L25.9 Unspecified contact dermatitis, unspecified cause | CPT/HCPCS: 71046; 99215; A6209; G0463 ==

== ENCOUNTER 2021-05-27 11:33 | Outpatient (CLI) | payer BC | END 2021-05-27 23:59 | disposition home health service (06) | LOC: WOU 11:33 | PROVIDERS: ATTEND Podiatrist Foot & Ankle Surgery | DX: L89.613 Pressure ulcer of right heel, stage 3 (principal); E11.621 Type 2 diabetes mellitus with foot ulcer; L97.512 Non-pressure chronic ulcer of other part of right foot with fat layer exposed; Z86.16 Personal history of COVID-19; Z83.3 Family history of diabetes mellitus; E11.42 Type 2 diabetes mellitus with diabetic polyneuropathy; Z86.73 Personal history of transient ischemic attack (TIA), and cerebral infarction without residual deficits; E11.610 Type 2 diabetes mellitus with diabetic neuropathic arthropathy; E78.5 Hyperlipidemia, unspecified; I10 Essential (primary) hypertension; E11.69 Type 2 diabetes mellitus with other specified complication; M86.671 Other chronic osteomyelitis, right ankle and foot; L84 Corns and callosities; L25.9 Unspecified contact dermatitis, unspecified cause | CPT/HCPCS: 11042; A6209 ==

== ENCOUNTER 2021-06-03 11:05 | Outpatient (CLI) | payer BC ==
[2021-06-03] MEDS ORDERED: LIDOCAINE SOLN 4% 50 ML BOTTLE ONE (11:20)
== END 2021-06-03 23:59 | disposition home health service (06) ==
LOC: WOU 11:05
PROVIDERS: ATTEND Podiatrist Foot & Ankle Surgery
DX: L89.614 Pressure ulcer of right heel, stage 4 (principal); Z86.16 Personal history of COVID-19; R05 Cough; E11.610 Type 2 diabetes mellitus with diabetic neuropathic arthropathy; E11.42 Type 2 diabetes mellitus with diabetic polyneuropathy; Z86.73 Personal history of transient ischemic attack (TIA), and cerebral infarction without residual deficits; E78.5 Hyperlipidemia, unspecified; Z90.49 Acquired absence of other specified parts of digestive tract; E11.69 Type 2 diabetes mellitus with other specified complication; M86.671 Other chronic osteomyelitis, right ankle and foot; M25.371 Other instability, right ankle; L25.9 Unspecified contact dermatitis, unspecified cause; L84 Corns and callosities; Z79.4 Long term (current) use of insulin; Z79.82 Long term (current) use of aspirin; Z79.899 Other long term (current) drug therapy
CPT/HCPCS: 11043; 71046; A6209

== ENCOUNTER 2021-06-07 10:04 | Outpatient (CLI) | payer BC | END 2021-06-07 23:59 | disposition home or self-care (01) | LOC: CT 10:04 | PROVIDERS: ATTEND Podiatrist Foot & Ankle Surgery | DX: L97.429 Non-pressure chronic ulcer of left heel and midfoot with unspecified severity (principal); A52.16 Charcot's arthropathy (tabetic) | CPT/HCPCS: 73700-TC ==

== ENCOUNTER 2021-06-10 11:00 | Outpatient (CLI) | payer BC | END 2021-06-10 23:59 | disposition home health service (06) | LOC: WOU 11:00 | PROVIDERS: ATTEND Podiatrist Foot & Ankle Surgery | DX: L89.614 Pressure ulcer of right heel, stage 4 (principal); E11.610 Type 2 diabetes mellitus with diabetic neuropathic arthropathy; E11.69 Type 2 diabetes mellitus with other specified complication; M86.671 Other chronic osteomyelitis, right ankle and foot; M25.371 Other instability, right ankle; L84 Corns and callosities; B35.1 Tinea unguium; Z20.822 Contact with and (suspected) exposure to COVID-19; I10 Essential (primary) hypertension; E78.5 Hyperlipidemia, unspecified; Z79.4 Long term (current) use of insulin; Z79.02 Long term (current) use of antithrombotics/antiplatelets | CPT/HCPCS: 11043; A6209 ==

== ENCOUNTER 2021-06-17 11:30 | Outpatient (CLI) | payer BC | END 2021-06-17 23:59 | disposition home health service (06) | LOC: WOU 11:30 | PROVIDERS: ATTEND Podiatrist Foot & Ankle Surgery | DX: L89.614 Pressure ulcer of right heel, stage 4 (principal); E11.610 Type 2 diabetes mellitus with diabetic neuropathic arthropathy; E11.69 Type 2 diabetes mellitus with other specified complication; M86.671 Other chronic osteomyelitis, right ankle and foot; Z79.4 Long term (current) use of insulin; L84 Corns and callosities; B35.1 Tinea unguium; L25.9 Unspecified contact dermatitis, unspecified cause; Z79.02 Long term (current) use of antithrombotics/antiplatelets; Z79.899 Other long term (current) drug therapy; Z20.822 Contact with and (suspected) exposure to COVID-19 | CPT/HCPCS: 11043; A6209 ==

== ENCOUNTER → 2021-06-24 | Outpatient (CLI) | payer BC | END | disposition home health service (06) | LOC: WOU 12:00 | PROVIDERS: ATTEND Podiatrist Foot & Ankle Surgery | DX: L89.614 Pressure ulcer of right heel, stage 4 (principal); E11.610 Type 2 diabetes mellitus with diabetic neuropathic arthropathy; E11.69 Type 2 diabetes mellitus with other specified complication; M86.671 Other chronic osteomyelitis, right ankle and foot; L84 Corns and callosities; B35.1 Tinea unguium; L25.9 Unspecified contact dermatitis, unspecified cause; M25.371 Other instability, right ankle; Z79.4 Long term (current) use of insulin; Z79.899 Other long term (current) drug therapy; Z79.02 Long term (current) use of antithrombotics/antiplatelets; I10 Essential (primary) hypertension | CPT/HCPCS: 11043; A6197 ==

== ENCOUNTER 2021-07-01 11:30 | Outpatient (CLI) | payer BC ==
[2021-07-01] MEDS ORDERED: UREA 10% -AHA 4% CREAM 57 GM TUBE ONE (12:48)
== END 2021-07-01 23:59 | disposition home health service (06) ==
LOC: WOU 11:30
PROVIDERS: ATTEND Podiatrist Foot & Ankle Surgery
DX: L89.614 Pressure ulcer of right heel, stage 4 (principal); E11.610 Type 2 diabetes mellitus with diabetic neuropathic arthropathy; E11.69 Type 2 diabetes mellitus with other specified complication; M86.671 Other chronic osteomyelitis, right ankle and foot; Z79.4 Long term (current) use of insulin; L84 Corns and callosities; B35.1 Tinea unguium; Z79.02 Long term (current) use of antithrombotics/antiplatelets; Z79.899 Other long term (current) drug therapy
CPT/HCPCS: 11043